=== PATIENT | male | born 1970 | race American Indian/Alaskan Native ===

== ENCOUNTER 2018-10-20 02:10 | Inpatient (IN) | payer BC ==
--- NOTE | 2018-10-20 03:16 | XRay Report ---
FINAL REPORT EXAM: XR CHEST 1V AP HISTORY: SOB TECHNIQUE: A portable semi-upright view of the chest was obtained. FINDINGS: The heart size is normal. The lungs appear mildly congested. There are no localized infiltrates or ef fusions. The skeletal structures are well-maintained. IMPRESSION: Mild pulmonary congestion. No localized infiltrates.
[2018-10-20 05:04] LABS: Basophils # (Auto) 0.1 K/mm3 (0.0-0.1); Basophils % (Auto) 0.6 % (0.0-1.8); Eosinophils # (Auto) 0.3 K/mm3 (0.0-0.4); Eosinophils % (Auto) 3.6 % (0.0-4.3); Hematocrit 28.6 % (35.5-45.6); Hemoglobin 9.6 gm/dl (11.8-15.2); Lymphocytes # (Auto) 1.7 K/mm3 (1.2-5.4); Lymphocytes % (Auto) 18.9 % (13.4-35.0); Mean Corpuscular HGB Conc 34 % (32-34); Mean Corpuscular Volume 85 fl (84-94); Monocytes # (Auto) 1.1 K/mm3 (0.0-0.8); Monocytes % (Auto) 12.6 % (0.0-7.3); Platelet Count 284 K/mm3 (140-440); Red Blood Count 3.35 M/mm3 (3.65-5.03); Red Cell Distribution Width 15.3 % (13.2-15.2)
[2018-10-20 05:10] LABS: BUN/Creatinine Ratio 44; Blood Urea Nitrogen 35 mg/dL (9-20); Hemolysis Index 2
[2018-10-20] MEDS ORDERED: MORPHINE IV PRN (05:26)
[2018-10-20] MEDS ORDERED: ZOFRAN IV PRN (05:26)
[2018-10-20] MEDS ORDERED: TYLENOL PO PRN (05:26)
--- NOTE | 2018-10-20 06:12 | Emergency Department Report ---
HPI - General Chief Complaint: Tube Replacement Time Seen by Provider: 10/20/18 02:28 - HPI HPI: 48-year-old -[place] Islander male presents to the emergency department via EMS from [facility] with complaint of his trach coming out. Per the [facility], the trach came out around 1 AM this morning. However family is bedside and says that they have been visiting him every day, like they always do, and they say that they have been mentioning to the staff at the longterm that his trach has appeared to be out of place or appears abnormal. They were assured by staff that the trach had been in place until this evening. 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 Apparently the trach is used for suction for his secretions and the daughter says that sometimes he will receive some type of ventilation with it. The patient himself is nonverbal and nonambulatory. ED Past Medical Hx - Past Medical History Previous Medical History?: Yes Hx Hypertension: Yes Hx CVA: Yes - Surgical History Additional Surgical History: tracheostomy placement - Social History Smoking Status: Never Smoker - Medications Home Medications: Home Medications Medication Instructions Recorded Confirmed Last Taken Type Clonidine HCl [Catapres] 0.3 mg PO Q6HR 10/20/18 10/20/18 Unknown History Doxazosin Mesylate [Cardura] 4 mg PO DAILY 10/20/18 10/20/18 Unknown History Famotidine [Acid Controller] 20 mg PO DAILY 10/20/18 10/20/18 Unknown History Sennosides [Senna] 17.4 mg PO DAILY 10/20/18 10/20/18 Unknown History hydrALAZINE [Apresoline TAB] 100 mg PO DAILY 10/20/18 10/20/18 Unknown History ED Review of Systems ROS: Stated complaint: TUBE REPLACEMENT Other details as noted in HPI Comment: Unobtainable due to pts medical conditions Physical Exam - Physical Exam Vital Signs: Vital Signs 10/20/18 10/20/18 10/20/18 02:15 02:27 02:44 Pulse Rate 87 88 Respiratory 20 20 20 Rate Blood Pressure 134/76 Blood Pressure 136/74 [Left] O2 Sat by Pulse 98 98 98 Oximetry 10/20/18 10/20/18 10/20/18 02:45 03:00 03:30 Pulse Rate 87 87 87 Respiratory 21 20 22 Rate Blood Pressure 142/78 140/84 135/79 Blood Pressure [Left] O2 Sat by Pulse 98 96 97 Oximetry 10/20/18 04:16 Pulse Rate 85 Respiratory 18 Rate Blood Pressure 127/79 Blood Pressure [Left] O2 Sat by Pulse 97 Oximetry Physical Exam: GENERAL: Patient is chronically debilitated. HEENT: Normocephalic. Atraumatic. Patient has moist mucous membranes. EYES: Pupils are equal and reactive to light bilaterally. NECK: Supple. There is a tracheostomy stoma in the middle of the anterior neck but the stoma appears almost completely closed. There is no surrounding erythema or any bleeding, weeping, discharge or drainage. CHEST/LUNGS: Clear to auscultation. There is no respiratory distress noted. HEART/CARDIOVASCULAR: Regular. There is no tachycardia. There is no obvious murmur. ABDOMEN: Abdomen is soft, nontender. Patient has normal bowel sounds. There is no abdominal distention. SKIN: Skin is warm and dry. Patient has some posterior pressure ulcers. NEURO: Patient is nonverbal and unresponsive but does have spontaneous eye opening and some spontaneous movements. MUSCULOSKELETAL: There are some contractures and atrophy of the extremities. ED Course Vital Signs 10/20/18 10/20/18 10/20/18 02:15 02:27 02:44 Pulse Rate 87 88 Respiratory 20 20 20 Rate Blood Pressure 134/76 Blood Pressure 136/74 [Left] O2 Sat by Pulse 98 98 98 Oximetry 10/20/18 10/20/18 10/20/18 02:45 03:00 03:30 Pulse Rate 87 87 87 Respiratory 21 20 22 Rate Blood Pressure 142/78 140/84 135/79 Blood Pressure [Left] O2 Sat by Pulse 98 96 97 Oximetry 10/20/18 04:16 Pulse Rate 85 Respiratory 18 Rate Blood Pressure 127/79 Blood Pressure [Left] O2 Sat by Pulse 97 Oximetry - Consultations Consultation #1: 10/20/18 06:10 I spoke with the personal caregiver on-call, Dr. Chiu, listen to the case pre sentation and my concerns regarding the patient's trach coming out and that it appears that the stoma has closed. She says that in this situation that it is usually a process where you watch and wait to see if something happens. However she has graciously agreed to see the patient as a consult. - ABG Interpretation Ph: 7.467 PCO2: 42 PO2: 84 Bicarbonate: 30 Interpretation: normal ED Medical Decision Making - Lab Data Result diagrams: 10/20/18 04:42 10/20/18 04:42 - Medical Decision Making This patient was sent in by his longterm for his trach coming out this evening. However family has suspicion that it may have been longer that the trach was out of place and nonfunctional. I looked at the stoma and it does appear closed or at least narrowed to the point where a different tracheostomy tube will not easily be placed without concern for soft tissue injury or possible bleeding. However the patient is breathing normally with the tracheostomy/stoma being covered. He has a pulse ox of 97-98% on room air. An ABG was done that shows that the patient is perfusing, as well as his ventilation. Chest x-ray did not show any pneumothorax, pneumonia, focal consolidation, or any other acute process. As per the consultation section, I spoke with the personal caregiver on-call, who is graciously agreed to see the patient is a consult as I do not feel comfortable sending the patient immediately back to the longterm without further evaluation. The patient will be admitted as a observational stay, to start, to monitor his respiratory status without the trach. He was accepted for admission by the hospitalist, Dr. Sotelo. Critical Care Time: No Critical care attestation.: If time is entered above; I have spent that time in minutes in the direct care of this critically ill patient, excluding procedure time. ED Disposition Clinical Impression: Tracheostomy malfunction, History of CVA (cerebrovascular accident) Anemia Qualifiers: Anemia type: unspecified type Qualified Code(s): D64.9 - Anemia, unspecified Disposition: OP ADMIT IP TO THIS HOSP Is pt being admited?: Yes Condition: Fair Referrals: CAMPOS MARQUIS MD [Primary Care Provider] - 3-5 Days Time of Disposition: 06:16
--- NOTE | 2018-10-20 07:11 | History and Physical Report ---
CHIEF COMPLAINT: Dislodgement of the tracheostomy tube. HISTORY OF PRESENT ILLNESS: The patient is a 48-year-old male who had tracheostomy placed in 05/2018 at [facility] and has been receiving home health services with the family noticing that the patient's tracheostomy site was not looking right according to the family member and they said that there was fluid discharge from the site, but there was no history of shortness of breath or history of fever or chills, or nausea or vomiting and the family noted that this has been going on for about 6 days and brought the patient for evaluation after the home health nurse saw the patient yesterday 10/19/2018 and the patient was evaluated in the Emergency Room and was told that the tracheostomy tube has dislodged with the stoma closed. PAST MEDICAL HISTORY: Not fully defined. PAST SURGICAL HISTORY: Pertinent for tracheostomy placement. FAMILY HISTORY: Family history is noncontributory. SOCIAL HISTORY: The patient does not smoke, does not drink alcohol, and does not use illicit drug. MEDICATIONS: The patient's home medications are not known. ALLERGIES: THE PATIENT IS ALLERGIC TO LISINOPRIL AND CHRIS INHIBITOR. REVIEW OF SYSTEMS: CONSTITUTIONAL: There is no fever, no chills, no diaphoresis. HEENT: There is no headache or sore throat. CARDIOVASCULAR SYSTEM: There is no chest pain or orthopnea. RESPIRATORY SYSTEM: There is no shortness of breath or cough. GASTROINTESTINAL SYSTEM: There is no nausea, no vomiting. No abdominal pain, diarrhea, or constipation. NEUROLOGICAL SYSTEM: There is no numbness, no dizziness, no altered mental status. MUSCULOSKELETAL SYSTEM: There is no joint pain or swelling. DERMATOLOGICAL SYSTEM: There is no skin rash or itching. GENITOURINARY SYSTEM: There is no dysuria, hematuria, or flank pain. Rest of system review is normal. PHYSICAL EXAMINATION: GENERAL: At the time of exam, the patient was found to be alert, oriented to person, noncommunicative, and not in acute distress. VITAL SIGNS: Show normal temperature, pulse of 85, respirations 18, blood pressure 127/79, O2 sat of 97% on room air. HEENT: Shows pupils to be equal, round, reactive to light and accommodating. Extraocular muscles are intact. NECK: Neck is supple with no JVD or carotid bruit and the tracheostomy site and flange loops closed with the stoma still looking fresh. CARDIOVASCULAR SYSTEM: Shows normal first and second heart sounds with no gallops or murmur. RESPIRATORY SYSTEM: Shows good air entry on both sides of the lung with no abnormal breath sounds. GASTROINTESTINAL SYSTEM: Shows abdomen to be full, soft, nontender with no organomegaly or rigidity. NEUROLOGICAL: Neuro exam shows no focal deficit. MUSCULOSKELETAL SYSTEM: Shows no joint swelling or tenderness. DERMATOLOGICAL SYSTEM: Shows no skin rash. GENITOURINARY SYSTEM: Showing no costovertebral angle tenderness. PERTINENT LABORATORY DATA AND IMAGING STUDIES: The patient has CBC done with normal white count, low hemoglobin of 9.6 and low hematocrit of 28.6 with normal MCV with CBC differential showing elevated monocyte count of 12.6. The patient's ABG shows elevated pH of 7.46 with normal pCO2, normal pO2 of 84, normal O2 sat of 97% on room air. The patient's chemistry shows slightly elevated sodium level of 146 with normal potassium, normal chloride, and the elevated BUN of 35 and normal creatinine with a normal estimated GFR of greater than 60. Imaging studies, the patient had chest x-ray done and chest x-ray shows mild pulmonary congestion with no localizing infiltrate. DIAGNOSES: Dislodged tracheostomy tube. PLAN: 1. The patient will be placed on observation in the medical hu and we will continue pulmonary consult with Dr. garcia already requested by the Emergency Room physician. 2. The patient will be on IV morphine 2 mg every 4 hours as needed for pain and IV Zofran 4 mg every 8 hours as needed for nausea and vomiting. 3. The patient will be on Tylenol 650 mg by mouth every 4 hours for fever and headache and will be on heparin 5000 units subcutaneous q. 12 hours for DVT prophylaxis. 4. The patient's diet will be regular diet. JOB# [id number] OCN/NTS KRISTINED
[2018-10-20] MEDS ORDERED: SODIUM BICARBONATE FEEDTUBE PRN (10:47)
[2018-10-20] MEDS ORDERED: SIMPLE SYRUP FEEDTUBE PRN ×2 (10:47)
[2018-10-20] MEDS ORDERED: PANCREAZE DR 10,500 UNIT FEEDTUBE PRN (10:47)
[2018-10-20] MEDS ORDERED: APRESOLINE ONE (10:57)
[2018-10-20] MEDS ORDERED: PEPCID ONE (10:58)
[2018-10-20] MEDS ORDERED: D5NS 1,000 ML IV SCH (11:00)
[2018-10-20] MEDS: HEPARIN SUB-Q SCH ×2 (11:00→21:11)
[2018-10-20] MEDS ORDERED: SENOKOT ONE (11:06)
[2018-10-20] MEDS ORDERED: CATAPRES ONE (11:07)
[2018-10-20] MEDS: APRESOLINE PO SCH (11:30)
[2018-10-20] MEDS: SENOKOT PO SCH (11:31)
[2018-10-20] MEDS: CATAPRES PO SCH ×3 (11:31→23:13)
[2018-10-20] MEDS: PEPCID PO SCH (11:31)
[2018-10-20] MEDS: CARDURA PO SCH (11:46)
[2018-10-20] MEDS ORDERED: NON-FORMULARY (Clonidine Hcl [Catapres] 0.3 MG) PO SCH (12:00)
--- NOTE | 2018-10-20 23:05 | Consultation ---
History of Present Illness Consult date: 10/20/18 Reason for consult: other (accidental decanulation of trachea) History of present illness: PULMONARY AND CRITICAL CARE CONSULTATION THAN YOU FOR ASKING US TO PARTICIPATE IN THE CARE OF THIS PATIENT 48-year-old -Ugandan male presents to the emergency department via EMS from [facility] with complaint of his trach coming out. Per the [facility], the trach came out around 1 AM this morning. However family is bedside and says that they have been visiting him every day, like they always do, and they say that they have been mentioning to the staff at the [facility] that his trach has appeared to be out of place or appears abnormal. They were assured by staff that the trach had been in place until this evening. 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 Apparently the trach is used for suction for his secretions and the daughter says that sometimes he will receive some type of ventilation with it. The patient himself is nonverbal and nonambulatory Patient awake.No acute respiratory distress. Resting on room air. Past History Past Medical History: hypertension, stroke Medications and Allergies Allergies Allergy/AdvReac Type Severity Reaction Status Date / Time CHRIS Inhibitors AdvReac Unknown Verified 10/20/18 02:26 lisinopril AdvReac Unknown Verified 10/20/18 02:26 Home Medications Medication Instructions Recorded Confirmed Last Taken Type Grvyk-Pwvljzk-Xpymwxqv Tablet 15 ml PO DAILY 10/20/18 10/20/18 Unknown History Norvasc 10 mg PO DAILY 10/20/18 10/20/18 Unknown History RX: Clonidine HCl [Catapres] 0.3 mg PO Q6HR 10/20/18 10/20/18 Unknown History RX: Doxazosin Mesylate [Cardura] 4 mg PO DAILY 10/20/18 10/20/18 Unknown History RX: Famotidine [Acid Controller] 20 mg PO DAILY 10/20/18 10/20/18 Unknown History RX: Scopolamine [Transderm-Scop] 1.5 mg TRANSDERMA Q72HR 10/20/18 10/20/18 Unknown History RX: Sennosides [Senna] 17.4 mg PO DAILY 10/20/18 10/20/18 Unknown History RX: hydrALAZINE [Apresoline TAB] 100 mg PO DAILY 10/20/18 10/20/18 Unknown History RX: Aspirin EC [Aspirin Enteric 81 mg PO QDAY #30 tablet. 10/21/18 Unknown Rx Coated TAB] Active Meds: Active Medications Acetaminophen (Tylenol) 650 mg PO Q4H PRN PRN Reason: Fever >101 Lipase/Protease/Amylase (Pancreaze 10,500 Unit) 1 each FEEDTUBE PRN PRN PRN Reason: For Clogged Feeding Tube Clonidine HCl (Catapres) 0.3 mg PO Q6H [facility] Last Admin: 10/20/18 18:22 Dose: 0.3 mg Documented by: Doxazosin Mesylate (Cardura) 4 mg PO DAILY [facility] Last Admin: 10/20/18 11:46 Dose: 4 mg Documented by: Famotidine (Pepcid) 20 mg PO DAILY [facility] Last Admin: 10/20/18 11:31 Dose: 20 mg Documented by: Heparin Sodium (Porcine) (Heparin) 5,000 unit SUB-Q Q12HR [facility] Last Admin: 10/20/18 21:11 Dose: Not Given Documented by: Hydralazine HCl (Apresoline) 100 mg PO DAILY [facility] Last Admin: 10/20/18 11:30 Dose: 100 mg Documented by: Dextrose/Sodium Chloride (D5ns) 1,000 mls @ 42 mls/hr IV DIRECT [facility] Morphine Sulfate (Morphine) 2 mg IV Q4H PRN PRN Reason: Pain, Moderate (4-6) Ondansetron HCl (Zofran) 4 mg IV Q8H PRN PRN Reason: Nausea And Vomiting Senna (Senokot) 17.4 mg PO DAILY [facility] Last Admin: 10/20/18 11:31 Dose: 17.4 mg Documented by: Simple Syrup (Simple Syrup) 15 ml FEEDTUBE PRN PRN PRN Reason: Hypoglycemia Simple Syrup (Simple Syrup) 30 ml FEEDTUBE PRN PRN PRN Reason: Hypoglycemia Sodium Bicarbonate (Sodium Bicarbonate) 325 mg FEEDTUBE PRN PRN PRN Reason: For Clogged Feeding Tube Review of Systems All systems: negative Physical Examination Vital signs: Vital Signs Pulse Resp BP Pulse Ox 87 20 136/74 98 10/20/18 02:15 10/20/18 02:15 10/20/18 02:15 10/20/18 02:15 General appearance: no acute distress, alert Eyes: non-icteric ENT: oropharynx moist Neck: supple, no JVD Ascultation: Bilateral: rhonchi (few rhonchi) Cardiovascular: regular rate and rhythm Gastrointestinal: normoactive bowel sounds, soft Integumentary: normal Extremities: no cyanosis, no edema Musculoskeletal: no deformities Gait: other (Patient is in the bed.) other (CVA) other (Patient non verbal,non communicative.) Results - Laboratory Findings CBC and BMP: 10/20/18 04:42 10/20/18 04:42 ABG POC ABG pH 7.467 (7.35-7.45) H 10/20/18 02:39 POC ABG pCO2 42.6 (35-45) 10/20/18 02:39 POC ABG pO2 84 (80-105) 10/20/18 02:39 POC ABG HCO3 30.8 10/20/18 02:39 POC ABG Total CO2 32 10/20/18 02:39 POC ABG O2 Sat 97 10/20/18 02:39 Abnormal lab findings: Abnormal Labs 10/20/18 10/20/18 10/20/18 02:39 04:42 04:42 RBC 3.35 L Hgb 9.6 L Hct 28.6 L RDW 15.3 H G[place] % (Auto) 12.6 H [place] # 1.1 H POC ABG pH 7.467 H Sodium 146 H BUN 35 H Glucose 101 H - Diagnostic Findings Chest x-ray: report reviewed (Mild pulmonary congestion. No pulmonary infiltrates.), image reviewed Assessment and Plan 48-year-old -Ugandan male presents to the emergency department via EMS from [facility] with complaint of his trach coming out. Per the [facility], the trach came out around 1 AM this morning. However family is bedside and says that they have been visiting him every day, like they always do, and they say that they have been mentioning to the staff at the [facility] that his trach has appeared to be out of place or appears abnormal. They were assured by staff that the trach had been in place until this evening. 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 Apparently the trach is used for suction for his secretions and the daughter says that sometimes he will receive some type of ventilation with it. The patient himself is nonverbal and nonambulatory Patient awake.No acute respiratory distress. Resting on room air. - Patient Problems (1) H/O tracheostomy Status: Acute Plan to address problem: Patient accidentally decanulated. Patient tolerating decanulation good so far. Respiratory suctioning as needed. Aspiration precautions. (2) History of CVA (cerebrovascular accident) Status: Acute Plan to address problem: Management as per primary care. (3) Hypertension Status: Acute Plan to address problem: Management as per primary care
[2018-10-21] MEDS: CATAPRES PO SCH ×3 (04:25→16:22)
[2018-10-21] MEDS: SENOKOT PO SCH (11:27)
[2018-10-21] MEDS: PEPCID PO SCH (11:28)
[2018-10-21] MEDS: CARDURA PO SCH (11:29)
[2018-10-21] MEDS: APRESOLINE PO SCH (11:29)
[2018-10-21] MEDS: HEPARIN SUB-Q SCH (11:31)
--- NOTE | 2018-10-21 13:53 | Event Note ---
Date: 10/20/18 48-year-old -Russian male presents to the emergency department via EMS from [facility] with complaint of his trach coming out. he is off trach now, breathing normally, no distress. will follow pulmonary recommendation, supportive care for now.
--- NOTE | 2018-10-21 14:12 | Progress Note ---
Subjective Date of service: 10/21/18 Objective - Constitutional Vitals: Vital Signs - 12hr 10/21/18 10/21/18 10/21/18 04:16 04:20 04:25 Temperature 98.7 F Pulse Rate 101 H 101 H 101 H Respiratory 20 Rate Blood Pressure 165/92 158/93 158/93 O2 Sat by Pulse 95 98 Oximetry 10/21/18 10/21/18 11:29 12:14 Temperature Pulse Rate 102 H 102 H Respiratory Rate Blood Pressure 181/110 181/110 O2 Sat by Pulse Oximetry - Labs CBC & Chem 7: 10/20/18 04:42 10/20/18 04:42
--- NOTE | 2018-10-21 14:31 | Discharge Summary ---
Providers - Providers Date of Admission: 10/20/18 05:21 Date of discharge: 10/21/18 Attending physician: NEREYDA PARRISH 10/20/18 04:53 Consult to Physician [CONS] Routine Comment: Dr. Miller spoke with Dr. Chiu @ 0424 Consulting Provider: ANABELA CHIU Physician Instructions: Reason For Exam: Evaluation after trachestomy pulled out 10/20/18 07:00 Consult to Wound/ET Nurse [CONS] Routine Reason For Exam: Wound eval for wound [facility] from [facility] 10/20/18 10:28 Consult to Dietitian/Nutrition [CONS] Routine Physician Instructions: Reason For Exam: Reason for Consult: Write/Manage Tube Feeding Primary care physician: CAMPOS MARQUIS Hospitalization Condition: Fair Pertinent studies: CXR: no localized infiltrates Hospital course: 48-year-old -Montenegrin male presents to the emergency department via EMS from [facility] with complaint of his trach coming out. Per the [facility], the trach came out around 1 AM IN THE morning. The patient has a history of a CVA from May that led to some type of respiratory failure, prolonged endotracheal tube and then REQUIRED tracheostomy. Apparently the trach was used for suction for his secretions and the daughter said that sometimes he will receive some type of ventilation with it. The patient himself is nonverbal and nonambulatory. Patient accidentally decanulated after accidentally removing trach tube. Patient is tolerating decanulation good so far. Pulmonary evaluated the patient and did not recommended to replace the trach tube as patient was able to breath and maintain airway w/o it. Patient was then discharge back to SNF in stable condition. He will continue to have TF wit h PEG. 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 HTN/HLD s/p PEG Disposition: DC/TX-03 SNF [facility] Time spent for discharge: 34 minutes Core Measure Documentation - Palliative Care Palliative Care/ Comfort Measures: Not Applicable - Core Measures Any of the following diagnoses?: history only Exam - Physical Exam Narrative exam: General appearance: no acute distress, alert Eyes: non-icteric ENT: oropharynx moist Neck: supple, no JVD Ascultation: Bilateral: rhonchi (few rhonchi) Cardiovascular: regular rate and rhythm Gastrointestinal: normoactive bowel sounds, soft Integumentary: normal Extremities: no cyanosis, no edema Musculoskeletal: no deformities Gait: other (Patient is in the bed) other (CVA) other (Patient non verbal,non communicative.) - Constitutional Vitals: Temp Pulse Resp BP Pulse Ox 98.4 F 102 H 20 171/96 98 10/21/18 14:15 10/21/18 12:14 10/21/18 14:15 10/21/18 14:15 10/21/18 04:20 Plan Activity: up only with assistance, other (aspiration precaution ) Diet: other (tube feeding) Wound: per wound nurse instructions Follow up with: CAMPOS MARQUIS MD [Primary Care Provider] - 3-5 Days Prescriptions: Aspirin EC [Aspirin Enteric Coated TAB] 81 mg PO QDAY #30 tablet.
[2018-10-21 15:21] VITALS: BP 163/76
== END 2018-10-21 18:21 | DRG 206 ==
LOC: ED 02:10 → 3A 05:21
PROVIDERS: ADMIT Internal Medicine; ATTEND Internal Medicine
PROC: 4A033R1 Measurement of Arterial Saturation, Peripheral, Percutaneous Approach (ICD-10-PCS; principal; 2018-10-20)
DX: J95.03 Malfunction of tracheostomy stoma (principal); G93.40 Encephalopathy, unspecified; I69.351 Hemiplegia and hemiparesis following cerebral infarction affecting right dominant side; R47.01 Aphasia; E78.5 Hyperlipidemia, unspecified; D64.9 Anemia, unspecified; Y83.8 Other surgical procedures as the cause of abnormal reaction of the patient, or of later complication, without mention of misadventure at the time of the procedure; I10 Essential (primary) hypertension; Z88.6 Allergy status to analgesic agent; Z88.8 Allergy status to other drugs, medicaments and biological substances; Z79.899 Other long term (current) drug therapy; Z93.1 Gastrostomy status; Y92.128 Other place in nursing home as the place of occurrence of the external cause
CPT/HCPCS: 36415; 71045; 80048; 82803; 85025; G0378; J1644

== ENCOUNTER 2020-07-26 03:04 | Inpatient (IN) | payer MEDICAID ==
--- NOTE | 2020-07-26 04:06 | XRay Report ---
CHEST 1 VIEW INDICATION / CLINICAL INFORMATION: Dyspnea. COMPARISON: 01/18/2019 FINDINGS: SUPPORT DEVICES: None. HEART / MEDIASTINUM: No significant abnormality. LUNGS / PLEURA: Suboptimal inspiration but no acute pulmonary or pleural disease. No pneumothorax. ADDITIONAL FINDINGS: No significant additional findings. IMPRESSION: 1. No acute findings. No interval change. Signer Name: Jenise Arias MD Signed: 07/26/2020 4:02 AM Workstation Name: [id number]
--- NOTE | 2020-07-26 05:13 | Emergency Department Report ---
ED Shortness of Breath HPI - General Chief Complaint: Dyspnea/Respdistress Stated Complaint: RESP DISTRESS Time Seen by Provider: 07/26/20 03:21 Source: EMS, old records reviewed Mode of arrival: Stretcher Limitations: Altered Mental Status - History of Present Illness Initial Comments: Chief complaint: Gurgling respirations and elevated blood pressure HPI: This is a 50-year-old male with history of CVA, seizure disorder, hypertension who presents from shelter facility with elevated blood pressure, chest congestion. At shelter facility staff member gave report for oxygen saturation 97% on room air with hypoxia. EMS detected 99% room air saturation. Patient is nonverbal. He is n.p.o. status. He receives medication and nutrition through feeding tube. History obtained from electronic medical record and documentation from shelter [facility]. MD Complaint: shortness of breath -: Gradual, days(s) (1) Severity: moderate Consistency: constant Improves With: nothing Worsens With: nothing Known History Of: other (History of pneumonia) Associated Symptoms: other (Nonverbal patient, history limited) Treatments Prior to Arrival: oxygen (EMS transport) - Related Data Home Medications Medication Instructions Recorded Confirmed Last Taken Doxazosin Mesylate [Cardura] 4 mg PO DAILY 10/20/18 07/26/20 Unknown Famotidine [Acid Controller] 20 mg PO DAILY 10/20/18 07/26/20 Unknown Acetaminophen [Acetaminophen TAB] 650 mg FEEDTUBE Q6HR PRN 07/26/20 07/26/20 U nknown Budesonide [Pulmicort] 0.25 mg IH Q12HR 07/26/20 07/26/20 Unknown Hyoscyamine Sulfate [Hyoscyamine 0.125 mg PO Q6HR PRN 07/26/20 07/26/20 Unknown Rapdis 0.125 mg] Silver Nitrate Applicator 1 each TP ONCE PRN 07/26/20 07/26/20 Unknown cloNIDine [Catapres] 0.2 mg PO BID 07/26/20 07/26/20 Unknown dilTIAZem [CarDIZEM] 120 mg FEEDTUBE TID 07/26/20 07/26/20 Unknown hydrALAZINE [Apresoline TAB] 100 mg FEEDTUBE TID 07/26/20 07/26/20 Unknown levETIRAcetam [Keppra] 7.5 ml PO BID 07/26/20 Unknown traMADoL [Ultram] 50 mg FEEDTUBE Q12HR PRN 07/26/20 07/26/20 Unknown Previous Rx's Medication Instructions Recorded Last Taken Type ALBUTEROL NEB's [Proventil 0.083% 2.5 mg IH Q4HRT PRN #15 nebu 01/23/19 Unknown Rx NEBS] Aspirin [Aspirin BABY CHEW TAB] 81 mg FEEDTUBE QDAY tab.chew 01/23/19 Unknown Rx Ipratropium/Albuterol Sulfate 2.5 mg IH Q12H #15 01/23/19 1 Day Ago Rx [DUONEB *Not for PRN Use*] ~01/18/19 Sennosides Oral Liqd [Senokot] 17.6 mg FEEDTUBE DAILY PRN #15 01/23/19 Unknown Rx oral.liqd Sodium Bicarbonate 325 mg FEEDTUBE PRN PRN tablet 01/23/19 Unknown Rx polyethylene glycoL 3350 [Miralax 17 gm FEEDTUBE QDAY PRN #15 01/23/19 1 Day Ago Rx 3350] ~01/18/19 Allergies Allergy/AdvReac Type Severity Reaction Status Date / Time CHRIS Inhibitors AdvReac Unknown Verified 01/18/19 13:02 lisinopril AdvReac Unknown Verified 01/18/19 13:02 ED Review of Systems ROS: Stated complaint: RESP DISTRESS Other details as noted in HPI Comment: Unobtainable due to pts medical conditions (Nonverbal status) ED Past Medical Hx - Past Medical History Previous Medical History?: Yes Hx Hypertension: Yes Hx CVA: Yes (with left weakness) Hx Diabetes: No Hx Asthma: Yes Hx COPD: No Hx HIV: No - Surgical History Past Surgical History?: Yes Additional Surgical History: tracheostomy placement - Social History Smoking Status: Unknown if ever smoked Substance Use Type: None - Medications Home Medications: Home Medications Medication Instructions Recorded Confirmed Last Taken Type Doxazosin Mesylate [Cardura] 4 mg PO DAILY 10/20/18 07/26/20 Unknown History Famotidine [Acid Controller] 20 mg PO DAILY 10/20/18 07/26/20 Unknown History ALBUTEROL NEB's [Proventil 0.083% 2.5 mg IH Q4HRT PRN #15 nebu 01/23/19 07/26/20 Unknown Rx NEBS] Aspirin [Aspirin BABY CHEW TAB] 81 mg FEEDTUBE QDAY tab.chew 01/23/19 07/26/20 Unknown Rx Ipratropium/Albuterol Sulfate 2.5 mg IH Q12H #15 01/23/19 07/26/20 1 Day Ago Rx [DUONEB *Not for PRN Use*] ~01/18/19 Sennosides Oral Liqd [Senokot] 17.6 mg FEEDTUBE DAILY PRN #15 01/23/19 07/26/20 Unknown Rx oral.liqd Sodium Bicarbonate 325 mg FEEDTUBE PRN PRN tablet 01/23/19 07/26/20 Unknown Rx polyethylene glycoL 3350 [Miralax 17 gm FEEDTUBE QDAY PRN #15 01/23/19 07/26/20 1 Day Ago Rx 3350] ~01/18/19 Acetaminophen [Acetaminophen TAB] 650 mg FEEDTUBE Q6HR PRN 07/26/20 07/26/20 Unknown History Budesonide [Pulmicort] 0.25 mg IH Q12HR 07/26/20 07/26/20 Unknown History Hyoscyamine Sulfate [Hyoscyamine 0.125 mg PO Q6HR PRN 07/26/20 07/26/20 Unknown History Rapdis 0.125 mg] Silver Nitrate Applicator 1 each TP ONCE PRN 07/26/20 07/26/20 Unknown History cloNIDine [Catapres] 0.2 mg PO BID 07/26/20 07/26/20 Unknown History dilTIAZem [CarDIZEM] 120 mg FEEDTUBE TID 07/26/20 07/26/20 Unknown History hydrALAZINE [Apresoline TAB] 100 mg FEEDTUBE TID 07/26/20 07/26/20 Unknown History levETIRAcetam [Keppra] 7.5 ml PO BID 07/26/20 Unknown History traMADoL [Ultram] 50 mg FEEDTUBE Q12HR PRN 07/26/20 07/26/20 Unknown History ED Physical Exam - General Limitations: Altered Mental Status General appearance: alert, in no apparent distress, other (Appears chronically ill) - Head Head exam: Present: atraumatic, normocephalic - ENT ENT exam: Present: mucous membranes moist - Neck Neck exam: Present: normal inspection - Respiratory Respiratory exam: Present: normal lung sounds bilaterally. Absent: respiratory distress, wheezes, rales, rhonchi - Cardiovascular Cardiovascular Exam: Present: regular rate, normal rhythm, normal heart sounds. Absent: systolic murmur, diastolic murmur, rubs, gallop - GI/Abdominal GI/Abdominal exam: Present: soft, normal bowel sounds. Absent: distended, tenderness, guarding, rebound - Rectal Rectal exam: Present: deferred - Extremities Exam Extremities exam: Present: pedal edema - Neurological Exam Neurological exam: Present: altered - Psychiatric Psychiatric exam: Present: flat affect - Skin Skin exam: Present: warm, dry, normal color. Absent: rash ED Course Vital Signs 07/26/20 07/26/20 07/26/20 03:13 03:15 03:23 Temperature 99.4 F Pulse Rate 94 H 91 H Respiratory 17 Rate Blood Pressure 145/78 Blood Pressure 145/78 [Left] O2 Sat by Pulse 99 99 97 Oximetry 07/26/20 07/26/20 07/26/20 03:31 03:34 03:42 Temperature Pulse Rate 90 91 H Respiratory 14 16 Rate Blood Pressure 145/78 Blood Pressure [Left] O2 Sat by Pulse 97 97 Oximetry ED Medical Decision Making - Lab Data Result diagrams: 07/26/20 04:21 - Radiology Data Radiology results: report reviewed CHEST 1 VIEW INDICATION / CLINICAL INFORMATION: Dyspnea. COMPARISON: 01/18/2019 FINDINGS: SUPPORT DEVICES: None. HEART / MEDIASTINUM: No significant abnormality. LUNGS / PLEURA: Suboptimal inspiration but no acute pulmonary or pleural disease. No pneumothorax. ADDITIONAL FINDINGS: No significant additional findings. IMPRESSION: 1. No acute findings. No interval change. - Medical Decision Making Mr. Mcgee 50-year-old male with a host of medical comorbidities including semivegetative state due to CVA. Patient appears to have chest congestion. Slight cough evident on today's exam. No fever. Patient arrived with room air oxygen saturation 97%. Has decreased to 87% hypoxic. Requiring 3 L nasal cannula. Low-grade temperature appetite 99.4. COVID-19 is a consideration. Patient will be admitted for further treatment evaluation. Critical care attestation.: If time is entered above; I have spent that time in minutes in the direct care of this critically ill patient, excluding procedure time. ED Disposition Clinical Impression: Acute respiratory failure, Suspected COVID-19 virus infection Disposition: [id number] OP ADMIT IP TO THIS HOSP Is pt being admited?: Yes Does the pt Need Aspirin: No Condition: Fair
[2020-07-26 05:26] LABS: BUN/Creatinine Ratio 26; Blood Urea Nitrogen 21 mg/dL (9-20); Calcium 9.4 mg/dL (8.4-10.2); Hemolysis Index 1
[2020-07-26] MEDS ORDERED: AZITHROMYCIN 500 MG in SODIUM CHLORIDE 0.9% 250ML 250 ML IV ONE (05:33)
[2020-07-26] MEDS ORDERED: cefTRIAXone/NS 1 GM/50 ML 1 GM/50 ML BAG IV ONE ×2 (05:33→06:42)
--- NOTE | 2020-07-26 05:48 | History and Physical Report ---
History of Present Illness Date of examination: 07/26/20 Date of admission: 07/26/20 05:32 Chief complaint: Hypoxia History of present illness: This is a 50-year-old male with history of CVA, seizure disorder, and hypertension. Unable to obtain information from patient-due to Patient non verbal, opens eyes with no purposeful response. Per ED record-He came from [facility] with elevated blood pressure and chest congestion. At [facility] staff member gave report for oxygen saturation 97% on room air with hypoxia. EMS detected 99% room air saturation. Patient is nonverbal. He is n.p.o. status. He receives medication and nutrition through feeding tube. History obtained from electronic medical record and documentation from [facility]. Hospital Medicine was asked to admit patient due to Hypoxia. Patient has face mask with oxygen at time of assessment-oxygen saturation 90%. ED work up shows Sodium level 142, potassium 3.6, serum glucose 108 and Cr 0.8 Chest [id number] no acute finding Past History Past Medical History: anemia, GERD, hypertension, stroke Past Surgical History: Other Social history: no significant social history Family history: no significant family history Medications and Allergies Allergies Allergy/AdvReac Type Severity Reaction Status Date / Time CHRIS Inhibitors AdvReac Unknown Verified 01/18/19 13:02 lisinopril AdvReac Unknown Verified 01/18/19 13:02 Home Medications Medication Instructions Recorded Confirmed Last Taken Type Doxazosin Mesylate [Cardura] 4 mg PO DAILY 10/20/18 07/26/20 Unknown History Famotidine [Acid Controller] 20 mg PO DAILY 10/20/18 07/26/20 Unknown History ALBUTEROL NEB's [Proventil 0.083% 2.5 mg IH Q4HRT PRN #15 nebu 01/23/19 07/26/20 Unknown Rx NEBS] Aspirin [Aspirin BABY CHEW TAB] 81 mg FEEDTUBE QDAY tab.chew 01/23/19 07/26/20 Unknown Rx Ipratropium/Albuterol Sulfate 2.5 mg IH Q12H #15 01/23/19 07/26/20 1 Day Ago Rx [DUONEB *Not for PRN Use*] ~01/18/19 Sennosides Oral Liqd [Senokot] 17.6 mg FEEDTUBE DAILY PRN #15 01/23/19 07/26/20 Unknown Rx oral.liqd Sodium Bicarbonate 325 mg FEEDTUBE PRN PRN tablet 01/23/19 07/26/20 Unknown Rx polyethylene glycoL 3350 [Miralax 17 gm FEEDTUBE QDAY PRN #15 01/23/19 07/26/20 1 Day Ago Rx 3350] ~01/18/19 Acetaminophen [Acetaminophen TAB] 650 mg FEEDTUBE Q6HR PRN 07/26/20 07/26/20 Unknown History Budesonide [Pulmicort] 0.25 mg IH Q12HR 07/26/20 07/26/20 Unknown History Hyoscyamine Sulfate [Hyoscyamine 0.125 mg PO Q6HR PRN 07/26/20 07/26/20 Unknown History Rapdis 0.125 mg] Silver Nitrate Applicator 1 each TP ONCE PRN 07/26/20 07/26/20 Unknown History cloNIDine [Catapres] 0.2 mg PO BID 07/26/20 07/26/20 Unknown History dilTIAZem [CarDIZEM] 120 mg FEEDTUBE TID 07/26/20 07/26/20 Unknown History hydrALAZINE [Apresoline TAB] 100 mg FEEDTUBE TID 07/26/20 07/26/20 Unknown History levETIRAcetam [Keppra] 7.5 ml PO BID 07/26/20 07/26/20 Unknown History traMADoL [Ultram] 50 mg FEEDTUBE Q12HR PRN 07/26/20 07/26/20 Unknown History Active Meds: Active Medications Azithromycin 500 mg/ Sodium (Chloride) 250 mls @ 250 mls/hr IV ONCE ONE; Protocol Stop: 07/26/20 06:32 Ceftriaxone Sodium (Rocephin/Ns 1 Gm/50 Ml) 1 gm in 50 mls @ 100 mls/hr IV ONCE ONE; Protocol Stop: 07/26/20 06:02 Review of Systems Constitutional: weakness, lethargy Respiratory: shortness of breath (suspected respiratory infection) Rectal: incontinence Psychiatric: disorientation Exam - Constitutional Vitals: Temp Pulse Resp BP Pulse Ox 99.4 F 91 H 16 145/78 97 07/26/20 03:23 07/26/20 03:34 07/26/20 03:42 07/26/20 03:31 07/26/20 03:42 General appearance: Present: mild distress - EENT ENT: other (unable to assess-eyes open and no purposefull response) - Respiratory Respiratory effort: other (shortness of breath with hypoxia) Respiratory: bilateral: diminished - Cardiovascular Heart rate: 91 Heart Sounds: Present: S1 & S2. Absent: rub, click - Extremities Extremities: pulses symmetrical, No edema, abnormal (bilateral arms and legs contracted) Extremity abnormal: deformity Peripheral Pulses: within normal limits - Abdominal General gastrointestinal: Present: other (Tube feeding) Male genitourinary: Present: normal - Integumentary Integumentary: Present: clear, warm, dry - Musculoskeletal Musculoskeletal: generalized weakness (HX CVA) - Psychiatric Psychiatric: other - Allied Health Allied health notes reviewed: nursing Results - Labs CBC & Chem 7: 07/26/20 04:21 07/26/20 04:21 Labs: Abnormal lab results 07/26/20 Range/Units 04:21 Carbon Dioxide 31 H (22-30) mmol/L BUN 21 H (9-20) mg/dL Glucose 101 H (75-100) mg/dL Assessment and Plan - Patient Problems (1) Encephalopathy Current Visit: Yes Status: Acute Plan to address problem: Patient has hx of CVA Aspiration precaution (2) Acute respiratory failure Current Visit: Yes Status: Acute Plan to address problem: ? cause-viral/bacterial infection Oxygen supplement Bronchodilator Empiric antibiotic (3) Suspected COVID-19 virus infection Current Visit: Yes Status: Acute Plan to address problem: Covid test-f/u with result Check inflammatory makers Will consult ID/Entry Level Receptionist if positive for covid (4) At high risk for aspiration Current Visit: No Status: Acute Plan to address problem: HOB > 30 degrees at all time Aspiration precaution (5) Debility Current Visit: No Status: Acute Plan to address problem: Positive q 2hrs Keep skin clean and dry (6) Hypertension Current Visit: No Status: Acute Plan to address problem: Monitor blood pressure Resume home antihypertensive Adjust if needed (7) Anemia Current Visit: No Status: Acute Qualifiers: Anemia type: unspecified type Qualified Code(s): D64.9 - Anemia, unspecified Plan to address problem: Monitor H/H Will transfuse PRBCs if needed (8) History of CVA (cerebrovascular accident) Current Visit: No Status: Acute Plan to address problem: On enteric feeding resume tube feeding Consult nutrition (9) DVT prophylaxis Current Visit: No Status: Acute Plan to address problem: SQ lovenox
[2020-07-26] MEDS ORDERED: ALBUTEROL 2.5 MG/3 ML NEBU IH PRN (05:53)
[2020-07-26 06:43] LABS: Basophils # (Auto) 0.1 K/mm3 (0.0-0.1); Basophils % (Auto) 0.7 % (0.0-1.8); Eosinophils # (Auto) 0.3 K/mm3 (0.0-0.4); Eosinophils % (Auto) 2.6 % (0.0-4.3); Hematocrit 37.8 % (35.5-45.6); Hemoglobin 13.4 gm/dl (11.8-15.2); Lymphocytes # (Auto) 2.5 K/mm3 (1.2-5.4); Lymphocytes % (Auto) 24.4 % (13.4-35.0); Mean Corpuscular HGB Conc 36 % (32-34); Mean Corpuscular Volume 87 fl (84-94); Monocytes # (Auto) 0.9 K/mm3 (0.0-0.8); Monocytes % (Auto) 8.9 % (0.0-7.3); Platelet Count 230 K/mm3 (140-440); Red Blood Count 4.35 M/mm3 (3.65-5.03); Red Cell Distribution Width 13.3 % (13.2-15.2)
[2020-07-26 08:28] LABS: C-Reactive Protein 1.4 mg/dL (0.00-1.30)
[2020-07-26] MEDS ORDERED: SIMPLE SYRUP 15 ML FEEDTUBE PRN ×2 (08:45)
[2020-07-26] MEDS ORDERED: LIPASE 10,500/PROTEASE 25,000/AMYLASE 43,750 (UNITS) DR CAP FEEDTUBE PRN (08:45)
[2020-07-26] MEDS ORDERED: SODIUM BICARBONATE 325 MG TAB FEEDTUBE PRN (08:45)
[2020-07-26] MEDS ORDERED: hydrALAZINE 100 MG TAB ONE ×3 (09:09→22:03)
[2020-07-26] MEDS ORDERED: dilTIAZem 30 MG TAB ONE (09:09)
[2020-07-26] MEDS: hydrALAZINE 100 MG TAB FEEDTUBE SCH ×3 (09:15→22:52)
[2020-07-26] MEDS: dilTIAZem 60 MG TAB FEEDTUBE SCH ×3 (09:15→22:54)
[2020-07-26] MEDS ORDERED: ENOXAPARIN 30 MG/0.3 ML INJ SUB-Q SCH (10:00)
[2020-07-26] MEDS ORDERED: ASPIRIN 81 MG TAB CHEW PO SCH (10:00)
--- NOTE | 2020-07-26 10:04 | Vascular Lab Report ---
DUPLEX DOPPLER LOWER EXTREMITY VEINS, BILATERAL INDICATION / CLINICAL INFORMATION: r/o DVT. TECHNIQUE: Duplex doppler imaging was performed through the veins of both lower extremities using venous levon jason and other maneuvers. COMPARISON: None available. FINDINGS: RIGHT COMMON FEMORAL VEIN: Negative. RIGHT FEMORAL VEIN: Negative. RIGHT POPLITEAL VEIN: Negative. RIGHT CALF VEINS: Negative. LEFT COMMON FEMORAL VEIN: Negative. LEFT FEMORAL VEIN: Negative. LEFT POPLITEAL VEIN: Negative. LEFT CALF VEINS: Negative. ADDITIONAL FINDINGS: None. IMPRESSION: 1. No sonographic evidence for DVT in either lower extremity. Signer Name: Sean Qureshi MD Signed: 07/26/2020 10:00 AM Workstation Name: [id number]
[2020-07-26] MEDS ORDERED: levETIRAcetam 500 MG/5 ML ORAL LIQD ONE (10:28)
[2020-07-26] MEDS ORDERED: ASPIRIN 81 MG TAB CHEW ONE (10:28)
[2020-07-26] MEDS ORDERED: ENOXAPARIN 40 MG/0.4 ML INJ SUB-Q ONE (10:29)
[2020-07-26] MEDS ORDERED: FAMOTIDINE 20 MG TAB ONE ×2 (10:29→22:03)
[2020-07-26] MEDS: FAMOTIDINE 20 MG TAB PO SCH ×2 (10:52→22:56)
[2020-07-26] MEDS: levETIRAcetam 500 MG/5 ML ORAL LIQD PO SCH ×2 (10:52→22:55)
[2020-07-26] MEDS: DOXAZOSIN 4 MG TAB PO SCH (10:52)
[2020-07-26] MEDS: ENOXAPARIN 40 MG/0.4 ML INJ SUB-Q SCH (10:53)
--- NOTE | 2020-07-26 16:41 | Event Note ---
This is a 50-year-old male with asthma, 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 Patient is nonverbal and has a feeding tube. Work-up in the emergency department revealed labs within normal limits and a chest x-ray with no acute findings. He was initiated on azithromycin and Rocephin. During the time of my exam patient is on a nonrebreather with SPO2 in the upper 90s. His D-dimer was slightly elevated therefore bilateral lower extremity Dopplers will obtained which showed no acute DVT. Patient is a COVID-19 PUI and infectious disease was consulted. His COVID-19 PCR is still pending. Home medications were reconciled and nutrition started tube feedings today. His procalcitonin level was less than 0.05 therefore his antibiotics can be stopped but we will wait for infectious disease input. Patient's ferritin is 337.3 and his CRP is 1.4.
[2020-07-26] MEDS ORDERED: BUDESONIDE 0.25 MG/2 ML NEBU IH SCH (22:00)
[2020-07-26] MEDS ORDERED: DEXAMETHASONE 4 MG TAB ONE (22:03)
[2020-07-26] MEDS: DEXAMETHASONE 4 MG TAB PO SCH (22:50)
[2020-07-27] MEDS ORDERED: hydrALAZINE 100 MG TAB ONE (08:44)
[2020-07-27] MEDS ORDERED: BUDESONIDE 0.25 MG/2 ML NEBU IH SCH (09:28)
[2020-07-27] MEDS: hydrALAZINE 100 MG TAB FEEDTUBE SCH ×3 (09:34→22:34)
[2020-07-27] MEDS: dilTIAZem 60 MG TAB FEEDTUBE SCH ×3 (09:42→21:34)
[2020-07-27] MEDS ORDERED: AZITHROMYCIN 500 MG in SODIUM CHLORIDE 0.9% 250ML 250 ML IV SCH (10:00)
[2020-07-27] MEDS: DOXAZOSIN 4 MG TAB PO SCH (11:00)
[2020-07-27] MEDS: FAMOTIDINE 20 MG TAB PO SCH ×2 (11:15→23:35)
[2020-07-27] MEDS: levETIRAcetam 500 MG/5 ML ORAL LIQD PO SCH ×2 (11:15→22:35)
[2020-07-27] MEDS: ENOXAPARIN 40 MG/0.4 ML INJ SUB-Q SCH (11:15)
[2020-07-27] MEDS: DEXAMETHASONE 4 MG TAB PO SCH (11:16)
[2020-07-27] MEDS: ASPIRIN 81 MG TAB CHEW FEEDTUBE SCH (11:17)
--- NOTE | 2020-07-27 12:05 | Consultation ---
History of Present Illness - Reason for Consult Consult date: 07/27/20 Rule out COVID-19 Requesting physician: GEETA STILL - History of Present Illness 50 years old male with history of CVA, seizure disorder, hypertension, from a assisted facility, admitted on 07/26/2020 due to chest congestion and elevated blood pressure. Unfortunately patient is nonverbal, unable to provide history. Patient has a feeding tube. On arrival, temperature 99.4, HR 94, O2 sat 99%. Chest x-ray shows no acute findings. Review of Systems: reviewed ED and H&P notes. Limited due to PPE conservation strategy Past History Past Medical History: anemia, GERD, hypertension, stroke Past Surgical History: Other Social history: no significant social history Family history: no significant family history Medications and Allergies Allergies Allergy/AdvReac Type Severity Reaction Status Date / Time CHRIS Inhibitors AdvReac Unknown Verified 07/26/20 08:33 lisinopril AdvReac Unknown Verified 07/26/20 08:33 Home Medications Medication Instructions Recorded Confirmed Last Taken Type Doxazosin Mesylate [Cardura] 4 mg PO DAILY 10/20/18 07/26/20 Unknown History Famotidine [Acid Controller] 20 mg PO DAILY 10/20/18 07/26/20 Unknown History ALBUTEROL NEB's [Proventil 0.083% 2.5 mg IH Q4HRT PRN #15 nebu 01/23/19 07/26/20 Unknown Rx NEBS] Aspirin [Aspirin BABY CHEW TAB] 81 mg FEEDTUBE QDAY tab.chew 01/23/19 07/26/20 Unknown Rx Ipratropium/Albuterol Sulfate 2.5 mg IH Q12H #15 01/23/19 07/26/20 1 Day Ago Rx [DUONEB *Not for PRN Use*] ~01/18/19 Sennosides Oral Liqd [Senokot] 17.6 mg FEEDTUBE DAILY PRN #15 01/23/19 07/26/20 Unknown Rx oral.liqd Sodium Bicarbonate 325 mg FEEDTUBE PRN PRN tablet 01/23/19 07/26/20 Unknown Rx polyethylene glycoL 3350 [Miralax 17 gm FEEDTUBE QDAY PRN #15 01/23/19 07/26/20 1 Day Ago Rx 3350] ~01/18/19 Acetaminophen [Acetaminophen TAB] 650 mg FEEDTUBE Q6HR PRN 07/26/20 07/26/20 Unknown History Budesonide [Pulmicort] 0.25 mg IH Q12HR 07/26/20 07/26/20 Unknown History Hyoscyamine Sulfate [Hyoscyamine 0.125 mg PO Q6HR PRN 07/26/20 07/26/20 Unknown History Rapdis 0.125 mg] Silver Nitrate Applicator 1 each TP ONCE PRN 07/26/20 07/26/20 Unknown History cloNIDine [Catapres] 0.2 mg PO BID 07/26/20 07/26/20 Unknown History dilTIAZem [CarDIZEM] 120 mg FEEDTUBE TID 07/26/20 07/26/20 Unknown History hydrALAZINE [Apresoline TAB] 100 mg FEEDTUBE TID 07/26/20 07/26/20 Unknown History levETIRAcetam [Keppra] 7.5 ml PO BID 07/26/20 07/26/20 Unknown History traMADoL [Ultram] 50 mg FEEDTUBE Q12HR PRN 07/26/20 07/26/20 Unknown History Active Meds: Active Medications Albuterol (Proventil) 2.5 mg IH Q4HRT PRN PRN Reason: Shortness Of Breath Lipase/Protease/Amylase (Kilo Conner 10,500 Unit) 1 each FEEDTUBE PRN PRN PRN Reason: For Clogged Feeding Tube Aspirin (Baby Aspirin) 81 mg FEEDTUBE QDAY [facility] Last Admin: 07/27/20 11:17 Dose: 81 mg Documented by: Budesonide (Pulmicort) 0.5 mg IH Q12HRT [facility] Dexamethasone (Decadron) 6 mg PO QDAY [facility] Stop: 08/04/20 10:01 Last Admin: 07/27/20 11:16 Dose: 6 mg Documented by: Diltiazem HCl (Cardizem) 120 mg FEEDTUBE TID [facility] Last Admin: 07/27/20 09:42 Dose: 120 mg Documented by: Doxazosin Mesylate (Cardura) 4 mg PO QDAY [facility] Last Admin: 07/26/20 10:52 Dose: 4 mg Documented by: Enoxaparin Sodium (Enoxaparin) 40 mg SUB-Q QDAY@1000 MERON; Protocol Last Admin: 07/27/20 11:15 Dose: 40 mg Documented by: Famotidine (Pepcid) 20 mg PO BID [facility] Last Admin: 07/27/20 11:15 Dose: 20 mg Documented by: Hydralazine HCl (Apresoline) 100 mg FEEDTUBE TID [facility] Last Admin: 07/27/20 09:34 Dose: 100 mg Documented by: Azithromycin 500 mg/ Sodium (Chloride) 250 mls @ 250 mls/hr IV Q24HR [facility]; Protocol Labetalol HCl (Labetalol) 10 mg IV Q8HR PRN PRN Reason: Hypertension Last Admin: 07/26/20 16:10 Dose: 10 mg Documented by: Levetiracetam (Keppra) 750 mg PO BID [facility] Last Admin: 07/27/20 11:15 Dose: 750 mg Documented by: Simple Syrup (Simple Syrup) 15 ml FEEDTUBE PRN PRN PRN Reason: Hypoglycemia Simple Syrup (Simple Syrup) 30 ml FEEDTUBE PRN PRN PRN Reason: Hypoglycemia Sodium Bicarbonate (Sodium Bicarbonate) 325 mg FEEDTUBE PRN PRN PRN Reason: For Clogged Feeding Tube Physical Examination - Physical Exam Narrative exam: Physical Exam: reviewed ED and hospitalist notes, limited due to conservation of PPE and decrease risk of transmission. General appearance: limited due to conservation of PPE Eyes: limited due to conservation of PPE HENT: Atraumatic; limited due to conservation of PPE Lungs: limited due to conservation of PPE CV: limited due to conservation of PPE Abdomen: limited due to conservation of PPE Extremities: limited due to conservation of PPE Skin: limited due to conservation of PPE Psych: limited due to conservation of PPE Neuro: limited due to conservation of PPE - Constitutional Vitals: Vital Signs Temp Pulse Resp BP Pulse Ox 97.6 F 110 H 20 128/71 92 07/27/20 11:15 07/27/20 11:15 07/27/20 11:15 07/27/20 11:15 07/27/20 11:15 Temperature -Last 24 Hours Temperature 97.6 F Temperature 98.0 F Temperature 98.3 F Results - Labs CBC & Chem 7: 07/26/20 04:21 07/26/20 07:10 Labs: Abnormal lab results 07/27/20 Range/Units 10:06 POC Glucose 115 H (70-105) mg/dL Assessment and Plan Cultures: Blood culture 07/26/2020 no growth today SARS CoV2 PCR pending Assessment: 50 years old male with history of CVA, seizure disorder, hypertension, from a assisted facility, admitted on 07/26/2020 due to chest congestion and elevated blood pressure of unknown duration: #SIRS rule out sepsis: Unclear etiology. #R/o COVID infection: Initial chest x-ray unremarkable. Patient currently on 2 L nasal cannula. D-dimer 286, ferritin 337. Venous ultrasound no DVT. #Acute hypoxemic respiratory failure: O2 sats dropped to 87%, currently on 2 L nasal cannula. Recommendations: -Follow SARS-CoV-2 PCR -Continue dexamethasone 6 mg IV/PO daily for 10 days -Repeat chest x-ray tomorrow -If SARS-CoV-2 PCR is positive and patient remains hypoxic, please start remdesivir total 5 days -Monitor inflammatory markers - ferritin, Ddimer, CRP, LDH -Stop ceftriaxone and azithromycin, procalcitonin <0.25 ng/mL -Continue anticoagulation per System Protocol All laboratory, cultures and imaging were reviewed. Will follow Ya Boyd MD Infectious Diseases Material Control Clerk [facility] M [phone] O [phone]
[2020-07-27] MEDS: BUDESONIDE 0.5 MG/2 ML NEBU IH SCH ×2 (14:09→23:13)
--- NOTE | 2020-07-27 14:24 | Progress Note ---
Assessment and Plan - Patient Problems (1) SIRS (systemic inflammatory response syndrome) Current Visit: Yes Status: Acute Plan to address problem: Rule out sepsis Unclear etiology Presented with tachycardia and hypotension 07/26 was initiated on azithromycin and Rocephin which was discontinued on 07/27 given normal CRP 07/26 blood cultures x2 with no growth to date 07/26 COVID-19 PCR pending Infectious disease consulted, appreciate input (2) Suspected COVID-19 virus infection Current Visit: Yes Status: Acute Plan to address problem: 07/26 COVID-19 PCR pending Droplet/isolation precautions Dexamethasone 6 mg daily started on 07/26 through 08/05 Consider remdesivir per ID if COVID-19 PCR positive OOB 3 times daily Trend from inflammatory markers Pulmonary hygiene Supplemental oxygenation as needed Prone to sleep Infectious disease consulted (3) Acute respiratory failure Current Visit: Yes Status: Acute Plan to address problem: Patient was on a nonrebreather in the ED and has been weaned down to a nasal cannula Pulmonary hygiene Supplemental oxygen as needed Wean as tolerated (4) Hypertension Current Visit: No Status: Acute Plan to address problem: Restarted home antihypertensive regimen Blood pressure monitor per protocol As needed labetalol (5) Seizure disorder Current Visit: No Status: Acute Plan to address problem: Restarted home antiseizure medication Seizure precautions (6) DVT prophylaxis Current Visit: No Status: Acute Plan to address problem: Lovenox subcu SCDs bilateral extremities while in bed History Interval history: This is a 50-year-old male with asthma, 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 Patient is nonverbal and has a feeding tube. Work-up in the emergency department revealed labs within normal limits and a chest x-ray with no acute findings. He was initiated on azithromycin and Rocephin which was stopped by ID today. COVID PCR is still pending and will initiate on remdesivir if (+). Patient has been weaned to NC. 07/26: During the time of my exam patient is on a nonrebreather with SPO2 in the upper 90s. His D-dimer was slightly elevated therefore bilateral lower extremity Dopplers will obtained which showed no acute DVT. Patient is a COVID- 19 PUI and infectious disease was consulted. His procalcitonin level was less t abdi 0.05 therefore his antibiotics can be stopped but we will wait for infectious disease input. Patient's ferritin is 337.3 and his CRP is 1.4. Hospitalist Physical - Physical exam Narrative exam: Not conducted in effort to conserve PPE and limit exposure - Constitutional Vitals: Temp Pulse Resp BP Pulse Ox 97.6 F 88 16 128/71 92 07/27/20 11:15 07/27/20 14:09 07/27/20 14:09 07/27/20 11:15 07/27/20 11:15 General appearance: Present: mild distress Results - Labs CBC & Chem 7: 07/26/20 04:21 07/26/20 07:10 Labs: Laboratory Last Values WBC 10.2 K/mm3 (4.5-11.0) 07/26/20 04:21 RBC 4.35 M/mm3 (3.65-5.03) 07/26/20 04:21 Hgb 13.4 gm/dl (11.8-15.2) 07/26/20 04:21 Hct 37.8 % (35.5-45.6) 07/26/20 04:21 MCV 87 fl (84-94) 07/26/20 04:21 MCH 31 pg (28-32) 07/26/20 04:21 MCHC 36 % (32-34) H 07/26/20 04:21 RDW 13.3 % (13.2-15.2) 07/26/20 04:21 Plt Count 230 K/mm3 (140-440) 07/26/20 04:21 Lymph % (Auto) 24.4 % (13.4-35.0) 07/26/20 04:21 [place] % (Auto) 8.9 % (0.0-7.3) H 07/26/20 04:21 Eos % (Auto) 2.6 % (0.0-4.3) 07/26/20 04:21 Baso % (Auto) 0.7 % (0.0-1.8) 07/26/20 04:21 Lymph # (Auto) 2.5 K/mm3 (1.2-5.4) 07/26/20 04:21 [place] # (Auto) 0.9 K/mm3 (0.0-0.8) H 07/26/20 04:21 Eos # (Auto) 0.3 K/mm3 (0.0-0.4) 07/26/20 04:21 Baso # (Auto) 0.1 K/mm3 (0.0-0.1) 07/26/20 04:21 Seg Neutrophils % 63.4 % (40.0-70.0) 07/26/20 04:21 Seg Neutrophils # 6.4 K/mm3 (1.8-7.7) 07/26/20 04:21 D-Dimer 286.09 ng/mlDDU (0-234) H 07/26/20 07:10 Sodium 142 mmol/L (137-145) 07/26/20 04:21 Potassium 3.6 mmol/L (3.6-5.0) 07/26/20 04:21 Chloride 102.6 mmol/L (98-107) 07/26/20 04:21 Carbon Dioxide 31 mmol/L (22-30) H 07/26/20 04:21 Anion Gap 12 mmol/L 07/26/20 04:21 BUN 21 mg/dL (9-20) H 07/26/20 04:21 Creatinine 0.8 mg/dL (0.8-1.3) 07/26/20 04:21 Estimated GFR > 60 ml/min 07/26/20 04:21 BUN/Creatinine Ratio 26 % 07/26/20 04:21 Glucose 131 mg/dL (75-100) H 07/26/20 07:10 POC Glucose 115 mg/dL (70-105) H 07/27/20 10:06 Calcium 9.4 mg/dL (8.4-10.2) 07/26/20 04:21 Ferritin 337.3 ng/mL (30.0-300.0) H 07/26/20 07:10 Lactate Dehydrogenase 157 units/L (91-180) 07/26/20 07:10 C-Reactive Protein 1.40 mg/dL (0.00-1.30) H 07/26/20 07:10 NT-Pro-B Natriuret Pep 97.40 pg/mL (0-900) 07/26/20 07:10 Procalcitonin < 0.05 ng/mL (<0.15) 11/09/20 07:10 Microbiology: Microbiology 07/26/20 04:05 Peripheral/Venous Blood Culture - Preliminary NO GROWTH AFTER 24 HOURS 07/26/20 04:21 Peripheral/Venous Blood Culture - Preliminary NO GROWTH AFTER 24 HOURS Hebert/IV: Voiding Method Condom Catheter IV Catheter Type [Right Hand] Peripheral IV IV Catheter Type [Right INT / Saline Lock Forearm] Active Medications - Current Medications Current Medications: Generic Name Dose Route Start Last Admin Trade Name Freq PRN Reason Stop Dose Admin Albuterol 2.5 mg 07/26/20 05:53 Proventil IH Q4HRT PRN Shortness Of Breath Lipase/Protease/Amylase 1 each 07/26/20 08:45 Pancreaze 10,500 Unit FEEDTUBE PRN PRN For Clogged Feeding Tube Aspirin 81 mg 07/27/20 10:00 07/27/20 11:17 Baby Aspirin FEEDTUBE 81 mg QDAY MERON Administration Budesonide 0.5 mg 07/27/20 09:30 07/27/20 14:09 Pulmicort IH 0.5 mg Q12HRT MERON Administration Dexamethasone 6 mg 07/26/20 17:00 07/27/20 11:16 Decadron PO 08/04/20 10:01 6 mg QDAY MERON Administration Diltiazem HCl 120 mg 07/26/20 08:15 07/27/20 09:42 Cardizem FEEDTUBE 120 mg TID MERON Administration Doxazosin Mesylate 4 mg 07/26/20 10:00 07/26/20 10:52 Cardura PO 4 mg QDAY MERON Administration Enoxaparin Sodium 40 mg 07/26/20 10:00 07/27/20 11:15 Enoxaparin SUB-Q 40 mg QDAY@1000 MERON Administration Protocol Famotidine 20 mg 07/26/20 10:00 07/27/20 11:15 Pepcid PO 20 mg BID MERON Administration Hydralazine HCl 100 mg 07/26/20 08:15 07/27/20 09:34 Apresoline FEEDTUBE 100 mg TID MERON Administration Azithromycin 500 mg/ Sodium 250 mls @ 250 mls/hr 07/27/20 10:00 Chloride IV Q24HR MERON Protocol Labetalol HCl 10 mg 07/26/20 05:51 07/26/20 16:10 Labetalol IV 10 mg Q8HR PRN Administration Hypertension Levetiracetam 750 mg 07/26/20 10:00 07/27/20 11:15 Keppra PO 750 mg BID MERON Administration Simple Syrup 15 ml 07/26/20 08:45 Simple Syrup FEEDTUBE PRN PRN Hypoglycemia Simple Syrup 30 ml 07/26/20 08:45 Simple Syrup FEEDTUBE PRN PRN Hypoglycemia Sodium Bicarbonate 325 mg 07/26/20 08:45 Sodium Bicarbonate FEEDTUBE PRN PRN For Clogged Feeding Tube Nutrition/Malnutrition Assess - Dietary Evaluation Nutrition/Malnutrition Findings: Nutrition Notes Start: 07/26/20 08:37 Freq: Status: Active Protocol: Document 07/26/20 08:37 LM (Rec: 07/26/20 08:45 LM [id number]) Nutrition Notes Need for Assessment generated from: MD Order Initial or Follow up Assessment Current Diagnosis Hypertension Other Pertinent Diagnosis Suspected COVID-19, ARF, seizures, encephalopathy, debility Current Diet No diet Labs/Tests BUN 21 Pertinent Medications Reviewed Height 5 ft 11 in Weight 90.718 kg [place] Body Weight (kg) 78.18 BMI 27.8 Weight Status Overweight Subjective/Other Information MD consult for TF. Pt is nonverbal and in ED. Burn Absent Trauma Absent Current % PO Negligible Minimum of two criteria No physical signs of malnutrition #1 Nutrition Diagnosis Inadequate oral intake Etiology Suspected COVID-19, ARF As Evidenced by Signs and Symptoms Pt requiring TF Is patient on ventilator? No Is Patient Ambulatory and/or Out of Bed No REE-([facility]-confined to bed) 4905.975 Calculation Used for Recommendations [facility] Additional Notes Protein: 73-91g (0.8-1g/kg) Fluid: 1ml/kcal Nutrition Intervention Change Diet Order: TF Nutrition Support: Jevity 1.2 at 65ml/hr Flush 100ml q4h Kcal 1,872 Protein (gm) 87 Fluid (mL) 1,259 Goal #1 TF start/tolerance Anticipated Discharge Needs: unable to determine at this time Follow-Up By: 07/28/20 Additional Comments F/U for TF start/tolerance
[2020-07-27] MEDS ORDERED: REMDESIVIR 100 MG VIAL IV ONE (18:00)
[2020-07-27] MEDS ORDERED: REMDESIVIR 200 MG in SODIUM CHLORIDE 0.9% 250ML 250 ML IV ONE (18:00)
[2020-07-27] MEDS: SODIUM CHLORIDE 0.9% 50 ML IVPB IV SCH (18:51)
[2020-07-28] MEDS: BUDESONIDE 0.5 MG/2 ML NEBU IH SCH ×2 (07:39→21:17)
--- NOTE | 2020-07-28 08:02 | XRay Report ---
CHEST 1 VIEW INDICATION: f/u resp distress. COMPARISON: 07/26/2020 FINDINGS: Support devices: None. Heart: Within normal limits. Lungs/Pleura: No acute air space or interstitial disease. Minor atelectatic changes have developed al minerva the minor fissure in the right lung. No pleural effusion or pneumothorax. Additional findings: None. IMPRESSION: No acute findings. Signer Name: Charles Rodriguez Jr, MD Signed: 07/28/2020 7:57 AM Workstation Name: [id number]
[2020-07-28] MEDS: hydrALAZINE 100 MG TAB FEEDTUBE SCH ×3 (08:57→23:31)
[2020-07-28] MEDS: dilTIAZem 60 MG TAB FEEDTUBE SCH ×3 (08:57→22:35)
[2020-07-28 09:38] LABS: Hematocrit 40.4 % (35.5-45.6); Hemoglobin 14.2 gm/dl (11.8-15.2); Mean Corpuscular HGB Conc 35 % (32-34); Mean Corpuscular Volume 87 fl (84-94); Platelet Count 261 K/mm3 (140-440); Red Blood Count 4.67 M/mm3 (3.65-5.03); Red Cell Distribution Width 13.5 % (13.2-15.2)
--- NOTE | 2020-07-28 09:54 | Progress Note ---
Assessment and Plan Cultures: Blood culture 07/26/2020 no growth today SARS CoV2 PCR positive Assessment: 50 years old male with history of CVA, seizure disorder, hypertension, from a shelter facility, admitted on 07/26/2020 due to chest congestion and elevated blood pressure of unknown duration: #SIRS rule out sepsis: Unclear etiology. #COVID infection: Initial chest x-ray unremarkable. Patient currently on 2 L nasal cannula. D-dimer 286, ferritin 337. Venous ultrasound no DVT. Repeat chest x-ray without any infiltrates. #Acute hypoxemic respiratory failure: O2 sats dropped to 87%, remains on 2 L nasal cannula. #Leukocytosis: Likely secondary to IV steroids Recommendations: -Continue dexamethasone 6 mg IV/PO daily for 10 days -Continue remdesivir total 5 days -Monitor inflammatory markers - ferritin, Ddimer, CRP, LDH -Continue anticoagulation per System Protocol -Check SARS-CoV-2 IgG All laboratory, cultures and imaging were reviewed. Will follow Ya Boyd MD Infectious Diseases [employer] [facility] ([facility]) M [phone] O [phone] Subjective Date of service: 07/28/20 Principal diagnosis: covid Interval history: Remains tachycardic on monitor, sats dropped to 91%, patient on 2 L nasal cannula Objective - Exam Narrative Exam: Physical Exam: reviewed ED and hospitalist notes, limited due to conservation of PPE and decrease risk of transmission. General appearance: limited due to conservation of PPE Eyes: limited due to conservation of PPE HENT: Atraumatic; limited due to conservation of PPE Lungs: limited due to conservation of PPE CV: limited due to conservation of PPE Abdomen: limited due to conservation of PPE Extremities: limited due to conservation of PPE Skin: limited due to conservation of PPE Psych: limited due to conservation of PPE Neuro: limited due to conservation of PPE - Constitutional Vitals: Vital Signs Temp Pulse Resp BP Pulse Ox 99.7 F H 116 H 16 141/98 97 07/27/20 22:23 07/28/20 08:57 07/28/20 07:40 07/28/20 08:57 07/28/20 01:00 Temperature -Last 24 Hours Temperature 99.7 F Temperature 98.9 F Temperature 97.6 F - Labs CBC & Chem 7: 07/28/20 08:35 07/26/20 07:10 Labs: Abnormal lab results 07/27/20 07/27/20 07/27/20 Range/Units 09:10 10:06 21:44 WBC (4.5-11.0) K/mm3 MCHC (32-34) % POC Glucose 115 H 116 H (70-105) mg/dL Coronavirus (PCR) Positive A (Negative) 07/28/20 07/28/20 Range/Units 06:27 08:35 WBC 15.4 H (4.5-11.0) K/mm3 MCHC 35 H (32-34) % POC Glucose 115 H (70-105) mg/dL Coronavirus (PCR) (Negative)
[2020-07-28 10:04] LABS: BUN/Creatinine Ratio 30; Blood Urea Nitrogen 30 mg/dL (9-20); Calcium 9.8 mg/dL (8.4-10.2); Hemolysis Index 9
[2020-07-28] MEDS ORDERED: POTASSIUM CHLORIDE 20 MEQ PACKET FEEDTUBE NR (12:00)
[2020-07-28] MEDS: DEXAMETHASONE 4 MG TAB PO SCH (13:32)
[2020-07-28] MEDS: ENOXAPARIN 40 MG/0.4 ML INJ SUB-Q SCH (13:33)
[2020-07-28] MEDS: FAMOTIDINE 20 MG TAB PO SCH ×2 (13:34→23:30)
[2020-07-28] MEDS: levETIRAcetam 500 MG/5 ML ORAL LIQD PO SCH ×2 (13:34→23:31)
[2020-07-28] MEDS: ASPIRIN 81 MG TAB CHEW FEEDTUBE SCH (13:35)
[2020-07-28] MEDS: DOXAZOSIN 4 MG TAB PO SCH (13:35)
--- NOTE | 2020-07-28 14:15 | Progress Note ---
Assessment and Plan - Patient Problems (1) SIRS (systemic inflammatory response syndrome) Current Visit: Yes Status: Acute Plan to address problem: Sepsis ruled out Unclear etiology Presented with tachycardia and hypotension 07/26 was initiated on azithromycin and Rocephin which was discontinued on 07/27 given normal CRP 07/26 blood cultures x2 with no growth to date 07/26 COVID-19 PCR positive Infectious disease consulted, appreciate input (2) COVID-19 virus infection Current Visit: Yes Status: Acute Plan to address problem: 07/26 COVID-19 PCR positive Droplet/isolation precautions Dexamethasone 6 mg daily started on 07/26 through 08/05 Remdesivir therapy started 07/27 through 08/01 OOB 3 times daily Trend from inflammatory markers Pulmonary hygiene Supplemental oxygenation as needed Prone to sleep Infectious disease consulted 07/28 COVID-19 antibody test ordered for possible convalescent plasma (3) Acute respiratory failure Current Visit: Yes Status: Acute Plan to address problem: Patient was on a nonrebreather in the ED and has been weaned down to a nasal cannula Pulmonary hygiene Supplemental oxygen as needed Wean as tolerated (4) Hypokalemia Current Visit: Yes Status: Acute Plan to address problem: 07/28 potassium 3.5 Repleted Trend BMP Replete as needed (5) Hypertension Current Visit: No Status: Chronic Plan to address problem: Restarted home antihypertensive regimen Blood pressure monitor per protocol As needed labetalol (6) Seizure disorder Current Visit: No Status: Chronic Plan to address problem: Restarted home antiseizure medication Seizure precautions (7) DVT prophylaxis Current Visit: No Status: Acute Plan to address problem: Lovenox subcu SCDs bilateral extremities while in bed History Interval history: This is a 50-year-old male with asthma, 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 Patient is nonverbal and has a feeding tube. Work-up in the emergency department revealed labs within normal limits and a chest x-ray with no acute findings. Patient's COVID-19 PCR was positive on 07/27 and he was initiated remdesivir. Continue remdesivir and steroid therapy. Infectious disease has requested COVID-19 antibody test and will possibly consider convalescent plasma. No acute event reported overnight. Patient remains on nasal cannula. Today the patient has hypokalemia 3.5 which has been repleted 07/26: During the time of my exam patient is on a nonrebreather with SPO2 in the upper 90s. His D-dimer was slightly elevated therefore bilateral lower extremity Dopplers will obtained which showed no acute DVT. Patient is a COVID- 19 PUI and infectious disease was consulted. His procalcitonin level was less than 0.05 therefore his antibiotics can be stopped but we will wait for infectious disease input. Patient's ferritin is 337.3 and his CRP is 1.4. 07/27: COVID-19 PCR positive and he was initiated on remdesivir with a loading dose and maintenance which will continue for 5 days. Azithromycin and Rocephin stopped due to normal CRP by infectious disease due to normal CRP Hospitalist Physical - Constitutional Vitals: Temp Pulse Resp BP Pulse Ox 99.8 F H 114 H 16 150/84 96 07/28/20 11:38 07/28/20 11:38 07/28/20 11:38 07/28/20 13:30 07/28/20 11:38 General appearance: Present: no acute distress - EENT Eyes: Present: PERRL, EOM intact ENT: poor dentition - Neck Neck: Present: supple, normal ROM - Respiratory Respiratory effort: normal Respiratory: bilateral: diminished - Cardiovascular Rhythm: regular Heart Sounds: Present: S1 & S2 - Extremities Extremities: no ischemia, pulses intact, pulses symmetrical, No edema, normal temperature, normal color Peripheral Pulses: within normal limits - Abdominal General gastrointestinal: soft, non-tender, non-distended, normal bowel sounds - Integumentary Integumentary: Present: warm, dry - Psychiatric Psychiatric: cooperative - Neurologic Neurologic: other (Patient withdraws to pain, he is nonverbal and does not follow any commands) - Allied Health Allied health notes reviewed: nursing, PT Results - Labs CBC & Chem 7: 07/28/20 08:35 07/28/20 08:35 Labs: Laboratory Last Values WBC 15.4 K/mm3 (4.5-11.0) H 07/28/20 08:35 RBC 4.67 M/mm3 (3.65-5.03) 07/28/20 08:35 Hgb 14.2 gm/dl (11.8-15.2) 07/28/20 08:35 Hct 40.4 % (35.5-45.6) 07/28/20 08:35 MCV 87 fl (84-94) 07/28/20 08:35 MCH 31 pg (28-32) 07/28/20 08:35 MCHC 35 % (32-34) H 07/28/20 08:35 RDW 13.5 % (13.2-15.2) 07/28/20 08:35 Plt Count 261 K/mm3 (140-440) 07/28/20 08:35 Lymph % (Auto) 24.4 % (13.4-35.0) 07/26/20 04:21 [place] % (Auto) 8.9 % (0.0-7.3) H 07/26/20 04:21 Eos % (Auto) 2.6 % (0.0-4.3) 07/26/20 04:21 Baso % (Auto) 0.7 % (0.0-1.8) 07/26/20 04:21 Lymph # (Auto) 2.5 K/mm3 (1.2-5.4) 07/26/20 04:21 [place] # (Auto) 0.9 K/mm3 (0.0-0.8) H 07/26/20 04:21 Eos # (Auto) 0.3 K/mm3 (0.0-0.4) 07/26/20 04:21 Baso # (Auto) 0.1 K/mm3 (0.0-0.1) 07/26/20 04:21 Seg Neutrophils % 63.4 % (40.0-70.0) 07/26/20 04:21 Seg Neutrophils # 6.4 K/mm3 (1.8-7.7) 07/26/20 04:21 D-Dimer 366.34 ng/mlDDU (0-234) H 07/28/20 08:35 Sodium 143 mmol/L (137-145) 07/28/20 08:35 Potassium 3.5 mmol/L (3.6-5.0) L 07/28/20 08:35 Chloride 105.4 mmol/L (98-107) 07/28/20 08:35 Carbon Dioxide 27 mmol/L (22-30) 07/28/20 08:35 Anion Gap 14 mmol/L 07/28/20 08:35 BUN 30 mg/dL (9-20) H 07/28/20 08:35 Creatinine 1.0 mg/dL (0.8-1.3) 07/28/20 08:35 Estimated GFR > 60 ml/min 07/28/20 08:35 BUN/Creatinine Ratio 30 % 07/28/20 08:35 Glucose 123 mg/dL (75-100) H 07/28/20 08:35 POC Glucose 115 mg/dL (70-105) H 07/28/20 06:27 Calcium 9.8 mg/dL (8.4-10.2) 07/28/20 08:35 Ferritin 465.9 ng/mL (30.0-300.0) H 07/28/20 08:35 Lactate Dehydrogenase 182 units/L (91-180) H 07/28/20 08:35 C-Reactive Protein 1.60 mg/dL (0.00-1.30) H 07/28/20 08:35 NT-Pro-B Natriuret Pep 97.40 pg/mL (0-900) 07/26/20 07:10 Procalcitonin < 0.05 ng/mL (<0.15) 07/26/20 07:10 Coronavirus (PCR) Positive (Negative) A 07/27/20 09:10 Microbiology: Microbiology 07/26/20 04:05 Peripheral/Venous Blood Culture - Preliminary NO GROWTH AFTER 48 HOURS 07/26/20 04:21 Peripheral/Venous Blood Culture - Preliminary NO GROWTH AFTER 48 HOURS Hebert/IV: Voiding Method Incontinent IV Catheter Type [Right Hand] Peripheral IV IV Catheter Type [Right Peripheral IV Forearm] Active Medications - Current Medications Current Medications: Generic Name Dose Route Start Last Admin Trade Name Freq PRN Reason Stop Dose Admin Albuterol 2.5 mg 07/26/20 05:53 Proventil IH Q4HRT PRN Shortness Of Breath Lipase/Protease/Amylase 1 each 07/26/20 08:45 Pancreluna [place] 10,500 Unit FEEDTUBE PRN PRN For Clogged Feeding Tube Aspirin 81 mg 07/27/20 10:00 07/28/20 13:35 Baby Aspirin FEEDTUBE 81 mg QDAY MERON Administration Budesonide 0.5 mg 07/27/20 09:30 07/28/20 07:39 Pulmicort IH 0.5 mg Q12HRT MERON Administration Dexamethasone 6 mg 07/26/20 17:00 07/28/20 13:32 Decadron PO 08/04/20 10:01 6 mg QDAY MERON Administration Diltiazem HCl 120 mg 07/26/20 08:15 07/28/20 08:57 Cardizem FEEDTUBE 120 mg TID MERON Administration Doxazosin Mesylate 4 mg 07/26/20 10:00 07/28/20 13:35 Cardura PO Not Given QDAY MERON Enoxaparin Sodium 40 mg 07/26/20 10:00 07/28/20 13:33 Enoxaparin SUB-Q 40 mg QDAY@1000 MERON Administration Protocol Famotidine 20 mg 07/26/20 10:00 07/28/20 13:34 Pepcid PO 20 mg BID MERON Administration Hydralazine HCl 100 mg 07/26/20 08:15 07/28/20 08:57 Apresoline FEEDTUBE 100 mg TID MERON Administration REMDESIVIR 100 mg/ Sodium 250 mls @ 500 mls/hr 07/28/20 21:00 Chloride IV 07/31/20 21:29 Q24HR@2100 MERON Labetalol HCl 10 mg 07/26/20 05:51 07/26/20 16:10 Labetalol IV 10 mg Q8HR PRN Administration Hypertension Levetiracetam 750 mg 07/26/20 10:00 07/28/20 13:34 Keppra PO 750 mg BID MERON Administration Potassium Chloride 20 meq 07/28/20 12:00 07/28/20 13:33 Potassium Chloride FEEDTUBE 07/28/20 15:00 20 meq ONCE@1200 NR Administration Simple Syrup 15 ml 07/26/20 08:45 Simple Syrup FEEDTUBE PRN PRN Hypoglycemia Simple Syrup 30 ml 07/26/20 08:45 Simple Syrup FEEDTUBE PRN PRN Hypoglycemia Sodium Bicarbonate 325 mg 07/26/20 08:45 Sodium Bicarbonate FEEDTUBE PRN PRN For Clogged Feeding Tube Sodium Chloride 50 ml 07/27/20 18:30 07/27/20 18:51 Nacl 0.9% IV 07/31/20 21:01 50 ml 2100 MERON Administration Nutrition/Malnutrition Assess - Dietary Evaluation Nutrition/Malnutrition Findings: Nutrition Notes Start: 07/26/20 08:37 Freq: Status: Active Protocol: Document 07/28/20 11:27 ZULEIKA (Rec: 07/28/20 11:32 [email or web address] [id number]) Nutrition Notes Initial or Follow up Reassessment Current Diagnosis Hypertension Other Pertinent Diagnosis COVID-19(+), ARF, seizures, encephalopathy, debility Current Diet Jevity 1.2 at 65 ml/hr (goal rate) Labs/Tests K 3.5 BUN 30 Pertinent Medications Reviewed Height 5 ft 11 in Weight 90.718 kg [place] Body Weight (kg) 78.18 BMI 27.8 Weight Status Overweight Subjective/Other Information FU for TF. Per RN, pt tolerating at goal. Percent of energy/protein needs met: 87%/100% Burn Absent Trauma Absent Current % PO Negligible Minimum of two criteria No physical signs of malnutrition #1 Nutrition Diagnosis Inadequate oral intake Diagnosis Progress(for reassessment Continues documentation) Is patient on ventilator? No Is Patient Ambulatory and/or Out of Bed No REE-([facility]-confined to bed) 6708.976 Calculation Used for Recommendations [facility] Additional Notes Protein: 73-91g (0.8-1g/kg) Fluid: 1ml/kcal Nutrition Intervention Change Diet Order: TF Nutrition Support: Jevity 1.2 at 65ml/hr Flush 100ml q4h Kcal 1,872 Protein (gm) 87 Fluid (mL) 1,259 Goal #1 Meet at least 80% of protien and energy needs via TF Anticipated Discharge Needs: unable to determine at this time Follow-Up By: 07/30/20 Additional Comments FU for TF tolerance
[2020-07-28] MEDS: REMDESIVIR 100 MG in SODIUM CHLORIDE 0.9% 250ML 250 ML IV SCH (22:29)
[2020-07-28] MEDS: SODIUM CHLORIDE 0.9% 50 ML IVPB IV SCH (23:30)
[2020-07-29 06:39] LABS: BUN/Creatinine Ratio 36; Blood Urea Nitrogen 36 mg/dL (9-20); Calcium 9.6 mg/dL (8.4-10.2); Hemolysis Index 8
[2020-07-29] MEDS: BUDESONIDE 0.5 MG/2 ML NEBU IH SCH ×2 (08:22→21:33)
[2020-07-29] MEDS: levETIRAcetam 500 MG/5 ML ORAL LIQD PO SCH ×2 (11:56→21:01)
[2020-07-29] MEDS: FAMOTIDINE 20 MG TAB PO SCH ×2 (11:57→21:01)
[2020-07-29] MEDS: DOXAZOSIN 4 MG TAB PO SCH (11:57)
[2020-07-29] MEDS: ENOXAPARIN 40 MG/0.4 ML INJ SUB-Q SCH (11:57)
[2020-07-29] MEDS: DEXAMETHASONE 4 MG TAB PO SCH (11:58)
[2020-07-29] MEDS: ASPIRIN 81 MG TAB CHEW FEEDTUBE SCH (12:07)
[2020-07-29] MEDS: hydrALAZINE 100 MG TAB FEEDTUBE SCH ×3 (12:07→20:59)
[2020-07-29] MEDS: dilTIAZem 60 MG TAB FEEDTUBE SCH ×3 (12:14→20:57)
--- NOTE | 2020-07-29 15:44 | Progress Note ---
Assessment and Plan - Patient Problems (1) SIRS (systemic inflammatory response syndrome) Current Visit: Yes Status: Acute Plan to address problem: Sepsis ruled out Unclear etiology Presented with tachycardia and hypotension 07/26 was initiated on azithromycin and Rocephin which was discontinued on 07/27 given normal CRP 07/26 blood cultures x2 with no growth to date 07/26 COVID-19 PCR positive Infectious disease consulted, appreciate input (2) COVID-19 virus infection Current Visit: Yes Status: Acute Plan to address problem: 07/26 COVID-19 PCR positive Droplet/isolation precautions Dexamethasone 6 mg daily started on 07/26 through 08/05 Remdesivir therapy started 07/27 through 08/01 OOB 3 times daily Trend from inflammatory markers Pulmonary hygiene Supplemental oxygenation as needed Prone to sleep Infectious disease consulted 07/28 COVID-19 antibody test positive therefore is not a candidate for convalescent plasma (3) Acute respiratory failure Current Visit: Yes Status: Acute Plan to address problem: Patient was on a nonrebreather in the ED and has been weaned down to a nasal cannula Pulmonary hygiene Supplemental oxygen as needed Wean as tolerated (4) Hyperchloremia Current Visit: Yes Status: Acute Plan to address problem: 07/24 chloride 105.4 07/29 chloride 108.2 Trend BMP (5) Hypokalemia Current Visit: Yes Status: Resolved Plan to address problem: 07/28 potassium 3.5 Repleted Trend BMP Replete as needed 07/29 potassium 4.1 (6) Hypertension Current Visit: No Status: Chronic Plan to address problem: Restarted home antihypertensive regimen Blood pressure monitoring per protocol As needed labetalol 07/29 started on metoprolol for persistent hypertension (7) Seizure disorder Current Visit: No Status: Chronic Plan to address problem: Restarted home antiseizure medication Seizure precautions (8) DVT prophylaxis Current Visit: No Status: Acute Plan to address problem: Lovenox subcu SCDs bilateral extremities while in bed History Interval history: This is a 50-year-old male with asthma, 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 Patient is nonverbal and has a feeding tube. Work-up in the emergency department revealed labs within normal limits and a chest x-ray with no acute findings. Patient's COVID-19 PCR was positive on 07/27 and he was initiated remdesivir. Continue remdesivir and steroid therapy. His COVID-19 antibody test was positive therefore is not a candidate for convalescent plasma. No acute events reported overnight. Patient still remains on nasal cannula. 07/26: During the time of my exam patient is on a nonrebreather with SPO2 in the upper 90s. His D-dimer was slightly elevated therefore bilateral lower extremity Dopplers will obtained which showed no acute DVT. Patient is a COVID- 19 PUI and infectious disease was consulted. His procalcitonin level was less than 0.05 therefore his antibiotics can be stopped but we will wait for infectious disease input. Patient's ferritin is 337.3 and his CRP is 1.4. 07/27: COVID-19 PCR positive and he was initiated on remdesivir with a loading dose and maintenance which will continue for 5 days. Azithromycin and Rocephin stopped due to normal CRP by infectious disease due to normal CRP 07/28 no acute events reported overnight. Patient remains on nasal cannula and he was hypokalemic which was repleted Hospitalist Physical - Constitutional Vitals: Temp Pulse Resp BP Pulse Ox 98.9 F 101 H 18 178/92 98 07/29/20 11:34 07/29/20 11:57 07/29/20 11:34 07/29/20 11:57 07/29/20 11:34 General appearance: Present: no acute distress Results - Labs CBC & Chem 7: 07/28/20 08:35 07/29/20 06:11 Labs: Laboratory Last Values WBC 15.4 K/mm3 (4.5-11.0) H 07/28/20 08:35 RBC 4.67 M/mm3 (3.65-5.03) 07/28/20 08:35 Hgb 14.2 gm/dl (11.8-15.2) 07/28/20 08:35 Hct 40.4 % (35.5-45.6) 07/28/20 08:35 MCV 87 fl (84-94) 07/28/20 08:35 MCH 31 pg (28-32) 07/28/20 08:35 MCHC 35 % (32-34) H 07/28/20 08:35 RDW 13.5 % (13.2-15.2) 07/28/20 08:35 Plt Count 261 K/mm3 (140-440) 07/28/20 08:35 Lymph % (Auto) 24.4 % (13.4-35.0) 07/26/20 04:21 [place] % (Auto) 8.9 % (0.0-7.3) H 07/26/20 04:21 Eos % (Auto) 2.6 % (0.0-4.3) 07/26/20 04:21 Baso % (Auto) 0.7 % (0.0-1.8) 07/26/20 04:21 Lymph # (Auto) 2.5 K/mm3 (1.2-5.4) 07/26/20 04:21 [place] # (Auto) 0.9 K/mm3 (0.0-0.8) H 07/26/20 04:21 Eos # (Auto) 0.3 K/mm3 (0.0-0.4) 07/26/20 04:21 Baso # (Auto) 0.1 K/mm3 (0.0-0.1) 07/26/20 04:21 Seg Neutrophils % 63.4 % (40.0-70.0) 07/26/20 04:21 Seg Neutrophils # 6.4 K/mm3 (1.8-7.7) 07/26/20 04:21 D-Dimer 366.34 ng/mlDDU (0-234) H 07/28/20 08:35 Sodium 147 mmol/L (137-145) H 07/29/20 06:11 Potassium 4.1 mmol/L (3.6-5.0) 07/29/20 06:11 Chloride 108.2 mmol/L (98-107) H 07/29/20 06:11 Carbon Dioxide 30 mmol/L (22-30) 07/29/20 06:11 Anion Gap 13 mmol/L 07/29/20 06:11 BUN 36 mg/dL (9-20) H 07/29/20 06:11 Creatinine 1.0 mg/dL (0.8-1.3) 07/29/20 06:11 Estimated GFR > 60 ml/min 07/29/20 06:11 BUN/Creatinine Ratio 36 % 07/29/20 06:11 Glucose 135 mg/dL (75-100) H 07/29/20 06:11 POC Glucose 107 mg/dL (70-105) H 07/29/20 12:34 Calcium 9.6 mg/dL (8.4-10.2) 07/29/20 06:11 Ferritin 465.9 ng/mL (30.0-300.0) H 07/28/20 08:35 Lactate Dehydrogenase 182 units/L (91-180) H 07/28/20 08:35 C-Reactive Protein 1.60 mg/dL (0.00-1.30) H 07/28/20 08:35 NT-Pro-B Natriuret Pep 97.40 pg/mL (0-900) 07/26/20 07:10 Procalcitonin < 0.05 ng/mL (<0.15) 07/26/20 07:10 Coronavirus (PCR) Positive (Negative) A 07/27/20 09:10 SARS-CoV-2 IgG Ab Reactive (NonReactive) A 07/28/20 12:07 Microbiology: Microbiology 07/26/20 04:05 Peripheral/Venous Blood Culture - Preliminary NO GROWTH AFTER 72 HOURS 07/26/20 04:21 Peripheral/Venous Blood Culture - Preliminary NO GROWTH AFTER 72 HOURS Hebert/IV: Voiding Method Condom Catheter IV Catheter Type [Right Hand] Peripheral IV IV Catheter Type [Right Peripheral IV Forearm] Active Medications - Current Medications Current Medications: Generic Name Dose Route Start Last Admin Trade Name Freq PRN Reason Stop Dose Admin Albuterol 2.5 mg 07/26/20 05:53 Proventil IH Q4HRT PRN Shortness Of Breath Lipase/Protease/Amylase 1 each 07/26/20 08:[address] 10,500 Unit FEEDTUBE PRN PRN For Clogged Feeding Tube Aspirin 81 mg 07/27/20 10:00 07/29/20 12:07 Baby Aspirin FEEDTUBE 81 mg QDAY MERON Administration Budesonide 0.5 mg 07/27/20 09:30 07/29/20 08:22 Pulmicort IH 0.5 mg Q12HRT MERON Administration Dexamethasone 6 mg 07/26/20 17:00 07/29/20 11:58 Decadron PO 08/04/20 10:01 6 mg QDAY MERON Administration Diltiazem HCl 120 mg 07/26/20 08:15 07/29/20 12:14 Cardizem FEEDTUBE 120 mg TID MERON Administration Doxazosin Mesylate 4 mg 07/26/20 10:00 07/29/20 11:57 Cardura PO 4 mg QDAY MERON Administration Enoxaparin Sodium 40 mg 07/26/20 10:00 07/29/20 11:57 Enoxaparin SUB-Q 40 mg QDAY@1000 MERON Administration Protocol Famotidine 20 mg 07/26/20 10:00 07/29/20 11:57 Pepcid PO 20 mg BID MERON Administration Hydralazine HCl 100 mg 07/26/20 08:15 07/29/20 12:07 Apresoline FEEDTUBE 100 mg TID MERON Administration REMDESIVIR 100 mg/ Sodium 250 mls @ 500 mls/hr 07/28/20 21:00 07/28/20 22:29 Chloride IV 07/31/20 21:29 500 mls/hr Q24HR@2100 MERON Administration Labetalol HCl 10 mg 07/26/20 05:51 07/26/20 16:10 Labetalol IV 10 mg Q8HR PRN Administration Hypertension Levetiracetam 750 mg 07/26/20 10:00 07/29/20 11:56 Keppra PO 750 mg BID MERON Administration Simple Syrup 15 ml 07/26/20 08:45 Simple Syrup FEEDTUBE PRN PRN Hypoglycemia Simple Syrup 30 ml 07/26/20 08:45 Simple Syrup FEEDTUBE PRN PRN Hypoglycemia Sodium Bicarbonate 325 mg 07/26/20 08:45 Sodium Bicarbonate FEEDTUBE PRN PRN For Clogged Feeding Tube Sodium Chloride 50 ml 07/27/20 18:30 07/28/20 23:30 Nacl 0.9% IV 07/31/20 21:01 50 ml 2100 MERON Administration Nutrition/Malnutrition Assess - Dietary Evaluation Nutrition/Malnutrition Findings: Nutrition Notes Start: 07/26/20 08:37 Freq: Status: Active Protocol: Document 07/28/20 11:27 (Rec: 07/28/20 11:32 [id number]) Nutrition Notes Initial or Follow up Reassessment Current Diagnosis Hypertension Other Pertinent Diagnosis COVID-19(+), ARF, seizures, encephalopathy, debility Current Diet Jevity 1.2 at 65 ml/hr (goal rate) Labs/Tests K 3.5 BUN 30 Pertinent Medications Reviewed Height 5 ft 11 in Weight 90.718 kg [place] Body Weight (kg) 78.18 BMI 27.8 Weight Status Overweight Subjective/Other Information FU for TF. Per RN, pt tolerating at goal. Percent of energy/protein needs met: 87%/100% Burn Absent Trauma Absent Current % PO Negligible Minimum of two criteria No physical signs of malnutrition #1 Nutrition Diagnosis Inadequate oral intake Diagnosis Progress(for reassessment Continues documentation) Is patient on ventilator? No Is Patient Ambulatory and/or Out of Bed No REE-([facility]-confined to bed) 1419.690 Calculation Used for Recommendations [facility] or Additional Notes Protein: 73-91g (0.8-1g/kg) Fluid: 1ml/kcal Nutrition Intervention Change Diet Order: TF Nutrition Support: Jevity 1.2 at 65ml/hr Flush 100ml q4h Kcal 1,872 Protein (gm) 87 Fluid (mL) 1,259 Goal #1 Meet at least 80% of protien and energy needs via TF Anticipated Discharge Needs: unable to determine at this time Follow-Up By: 07/30/20 Additional Comments FU for TF tolerance
--- NOTE | 2020-07-29 16:54 | Progress Note ---
Assessment and Plan Cultures: Blood culture 07/26/2020 no growth today SARS CoV2 PCR positive Assessment: 50 years old male with history of CVA, seizure disorder, hypertension, from a assisted facility, admitted on 07/26/2020 due to chest congestion and elevated blood pressure of unknown duration: #SIRS rule out sepsis: Unclear etiology. #COVID infection: Initial chest x-ray unremarkable. Patient currently on 2 L nasal cannula. D-dimer 286, ferritin 337. Venous ultrasound no DVT. Repeat chest x-ray without any infiltrates. #Acute hypoxemic respiratory failure: Initial O2 sats dropped to 87%, remains on 2 L nasal cannula. #Leukocytosis: Likely secondary to IV steroids Recommendations: -Continue dexamethasone 6 mg IV/PO daily for 10 days -Continue remdesivir total 5 days -Monitor inflammatory markers - ferritin, Ddimer, CRP, LDH -Continue anticoagulation per System Protocol -SARS-CoV-2 IgG positive, patient is not a candidate for Covid convalescent plasma All laboratory, cultures and imaging were reviewed. Will follow Ya Boyd MD Infectious Diseases [employer] [facility] [place] [facility] [phone] O [phone] Subjective Date of service: 07/29/20 Principal diagnosis: covid Interval history: Patient remains on 2 L, tachycardic, no fever Objective - Exam Narrative Exam: Physical Exam: reviewed ED and hospitalist notes, limited due to conservation of PPE and decrease risk of transmission. General appearance: limited due to conservation of PPE Eyes: limited due to conservation of PPE HENT: Atraumatic; limited due to conservation of PPE Lungs: limited due to conservation of PPE CV: limited due to conservation of PPE Abdomen: limited due to conservation of PPE Extremities: limited due to conservation of PPE Skin: limited due to conservation of PPE Psych: limited due to conservation of PPE Neuro: limited due to conservation of PPE - Constitutional Vitals: Vital Signs Temp Pulse Resp BP Pulse Ox 98.9 F 101 H 18 178/92 98 07/29/20 11:34 07/29/20 11:57 07/29/20 11:34 07/29/20 11:57 07/29/20 11:34 Temperature -Last 24 Hours Temperature 98.9 F Temperature 97.9 F Temperature 97.7 F - Labs CBC & Chem 7: 07/28/20 08:35 07/29/20 06:11 Labs: Abnormal lab results 07/28/20 07/29/20 07/29/20 Range/Units 21:21 06:11 07:43 Sodium 147 H (137-145) mmol/L Chloride 108.2 H (98-107) mmol/L BUN 36 H (9-20) mg/dL Glucose 135 H (75-100) mg/dL POC Glucose 126 H 109 H (70-105) mg/dL 07/29/20 Range/Units 12:34 Sodium (137-145) mmol/L Chloride (98-107) mmol/L BUN (9-20) mg/dL Glucose (75-100) mg/dL POC Glucose 107 H (70-105) mg/dL
[2020-07-29] MEDS: SODIUM CHLORIDE 0.9% 50 ML IVPB IV SCH (20:57)
[2020-07-29] MEDS: METOPROLOL TARTRATE 50 MG TAB PO SCH (21:02)
[2020-07-29] MEDS: REMDESIVIR 100 MG in SODIUM CHLORIDE 0.9% 250ML 250 ML IV SCH (22:12)
[2020-07-30 08:56] LABS: Alanine Aminotransferase 44 units/L (7-56); Albumin 3.6 g/dL (3.9-5); Blood Urea Nitrogen 36 mg/dL (9-20); Calcium 9.3 mg/dL (8.4-10.2); Hemolysis Index 9
[2020-07-30 08:58] LABS: BUN/Creatinine Ratio 51; Bilirubin,Direct < 0.2 mg/dL (0-0.2)
[2020-07-30] MEDS: BUDESONIDE 0.5 MG/2 ML NEBU IH SCH ×2 (09:25→20:37)
[2020-07-30] MEDS ORDERED: SENNOSIDES ORAL LIQD 8.8 MG/5 ML ORAL LIQD FEEDTUBE PRN (10:00)
[2020-07-30] MEDS: FAMOTIDINE 20 MG TAB PO SCH ×2 (11:31→23:20)
[2020-07-30] MEDS: DOXAZOSIN 4 MG TAB PO SCH (11:31)
[2020-07-30] MEDS: levETIRAcetam 500 MG/5 ML ORAL LIQD PO SCH ×2 (11:31→23:20)
[2020-07-30] MEDS: ASPIRIN 81 MG TAB CHEW FEEDTUBE SCH (11:31)
[2020-07-30] MEDS: POLYETHYLENE GLYCOL 3350 17 GM POWDER FEEDTUBE SCH (11:31)
[2020-07-30] MEDS: ENOXAPARIN 40 MG/0.4 ML INJ SUB-Q SCH (11:31)
[2020-07-30] MEDS: DEXAMETHASONE 4 MG TAB PO SCH (11:32)
[2020-07-30] MEDS: METOPROLOL TARTRATE 50 MG TAB PO SCH ×2 (11:33→23:20)
[2020-07-30] MEDS: dilTIAZem 60 MG TAB FEEDTUBE SCH ×3 (11:39→20:55)
[2020-07-30] MEDS: hydrALAZINE 100 MG TAB FEEDTUBE SCH ×3 (11:39→20:55)
--- NOTE | 2020-07-30 12:35 | Progress Note ---
Assessment and Plan - Patient Problems (1) SIRS (systemic inflammatory response syndrome) Current Visit: Yes Status: Acute Plan to address problem: Sepsis ruled out Unclear etiology Presented with tachycardia and hypotension 07/26 was initiated on azithromycin and Rocephin which was discontinued on 07/27 given normal CRP 07/26 blood cultures x2 with no growth to date 07/26 COVID-19 PCR positive Infectious disease consulted, appreciate input (2) COVID-19 virus infection Current Visit: Yes Status: Acute Plan to address problem: 07/26 COVID-19 PCR positive Droplet/isolation precautions Dexamethasone 6 mg daily started on 07/26 through 08/05 Remdesivir therapy started 07/27 through 08/01 OOB 3 times daily Trend from inflammatory markers Pulmonary hygiene Supplemental oxygenation as needed Prone to sleep Infectious disease consulted 07/28 COVID-19 antibody test positive therefore is not a candidate for convalescent plasma (3) Acute respiratory failure Current Visit: Yes Status: Acute Plan to address problem: Patient was on a nonrebreather in the ED and has been weaned down to a nasal cannula Pulmonary hygiene Supplemental oxygen as needed Wean as tolerated (4) Hyperchloremia Current Visit: Yes Status: Acute Plan to address problem: 07/24 chloride 105.4 07/29 chloride 108.2, 07/30 111.3 Trend BMP Nutrition as ordered free water flushes depending on sodium level, informed nurse patient should be getting 200 mg every 4 hours of fwf due to hypernatremia per orders. (5) Hypernatremia Current Visit: Yes Status: Acute Plan to address problem: 07/29 sodium 147, 07/30 sodium 147 Patient is ordered 200 mL every 4 hours of FWF while hyponatremic Patient nurse informed of order Trend BMP (6) Hypertension Current Visit: No Status: Chronic Plan to address problem: Restarted home antihypertensive regimen Blood pressure monitoring per protocol As needed labetalol 07/29 started on metoprolol for persistent hypertension (7) Seizure disorder Current Visit: No Status: Chronic Plan to address problem: Restarted home antiseizure medication Seizure precautions (8) DVT prophylaxis Current Visit: No Status: Acute Plan to address problem: Lovenox subcu SCDs bilateral extremities while in bed History Interval history: This is a 50-year-old male with asthma, 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 Patient is nonverbal and has a feeding tube. Work-up in the emergency department revealed labs within normal limits and a chest x-ray with no acute findings. Patient's COVID-19 PCR was positive on 07/27 and he was initiated remdesivir. Continue remdesivir and steroid therapy. No acute events reported overnight. Patient still remains on supplemental oxygenation at this time. Patient remains hypernatremic and hyperchloremic, patient's RN informed of free water flush orders while hypernatremic. 07/26: During the time of my exam patient is on a nonrebreather with SPO2 in the upper 90s. His D-dimer was slightly elevated therefore bilateral lower extremity Dopplers will obtained which showed no acute DVT. Patient is a COVID- 19 PUI and infectious disease was consulted. His procalcitonin level was less than 0.05 therefore his antibiotics can be stopped but we will wait for infectious disease input. Patient's ferritin is 337.3 and his CRP is 1.4. 07/27: COVID-19 PCR positive and he was initiated on remdesivir with a loading dose and maintenance which will continue for 5 days. Azithromycin and Rocephin stopped due to normal CRP by infectious disease due to normal CRP 07/28:no acute events reported overnight. Patient remains on nasal cannula and he was hypokalemic which was repleted 07/29 COVID-19 antibody test positive therefore is not a candidate for conval escent plasma. Patient still remains on nasal cannula Hospitalist Physical - Physical exam Narrative exam: Not conducted in effort to conserve PPE and limit exposure - Constitutional Vitals: Temp Pulse Resp BP Pulse Ox 98.7 F 90 23 134/80 92 07/30/20 05:43 07/30/20 09:25 07/30/20 09:25 07/30/20 05:43 07/30/20 05:43 General appearance: Present: no acute distress Results - Labs CBC & Chem 7: 07/28/20 08:35 07/30/20 08:12 Labs: Laboratory Last Values WBC 15.4 K/mm3 (4.5-11.0) H 07/28/20 08:35 RBC 4.67 M/mm3 (3.65-5.03) 07/28/20 08:35 Hgb 14.2 gm/dl (11.8-15.2) 07/28/20 08:35 Hct 40.4 % (35.5-45.6) 07/28/20 08:35 MCV 87 fl (84-94) 07/28/20 08:35 MCH 31 pg (28-32) 07/28/20 08:35 MCHC 35 % (32-34) H 07/28/20 08:35 RDW 13.5 % (13.2-15.2) 07/28/20 08:35 Plt Count 261 K/mm3 (140-440) 07/28/20 08:35 Lymph % (Auto) 24.4 % (13.4-35.0) 07/26/20 04:21 [place] % (Auto) 8.9 % (0.0-7.3) H 07/26/20 04:21 Eos % (Auto) 2.6 % (0.0-4.3) 07/26/20 04:21 Baso % (Auto) 0.7 % (0.0-1.8) 07/26/20 04:21 Lymph # (Auto) 2.5 K/mm3 (1.2-5.4) 07/26/20 04:21 [place] # (Auto) 0.9 K/mm3 (0.0-0.8) H 07/26/20 04:21 Eos # (Auto) 0.3 K/mm3 (0.0-0.4) 07/26/20 04:21 Baso # (Auto) 0.1 K/mm3 (0.0-0.1) 07/26/20 04:21 Seg Neutrophils % 63.4 % (40.0-70.0) 07/26/20 04:21 Seg Neutrophils # 6.4 K/mm3 (1.8-7.7) 07/26/20 04:21 D-Dimer 249.45 ng/mlDDU (0-234) H 07/30/20 08:12 Sodium 147 mmol/L (137-145) H 07/30/20 08:12 Potassium 4.1 mmol/L (3.6-5.0) 07/30/20 08:12 Chloride 111.7 mmol/L (98-107) H 07/30/20 08:12 Carbon Dioxide 29 mmol/L (22-30) 07/30/20 08:12 Anion Gap 10 mmol/L 07/30/20 08:12 BUN 36 mg/dL (9-20) H 07/30/20 08:12 Creatinine 0.7 mg/dL (0.8-1.3) L 07/30/20 08:12 Estimated GFR > 60 ml/min 07/30/20 08:12 BUN/Creatinine Ratio 51 % 07/30/20 08:12 Glucose 91 mg/dL (75-100) 07/30/20 08:12 POC Glucose 98 mg/dL (70-105) 07/30/20 05:58 Calcium 9.3 mg/dL (8.4-10.2) 07/30/20 08:12 Ferritin 382.1 ng/mL (30.0-300.0) H 07/30/20 08:12 Total Bilirubin 0.40 mg/dL (0.1-1.2) 07/30/20 08:12 Direct Bilirubin < 0.2 mg/dL (0-0.2) 07/30/20 08:12 AST 29 units/L (5-40) 07/30/20 08:12 ALT 44 units/L (7-56) 07/30/20 08:12 Alkaline Phosphatase 74 units/L (35-129) 07/30/20 08:12 Lactate Dehydrogenase 150 units/L (91-180) 07/30/20 08:12 C-Reactive Protein 0.30 mg/dL (0.00-1.30) 07/30/20 08:12 NT-Pro-B Natriuret Pep 97.40 pg/mL (0-900) 07/26/20 07:10 Total Protein 7.3 g/dL (6.3-8.2) 07/30/20 08:12 Albumin 3.6 g/dL (3.9-5) L 07/30/20 08:12 Albumin/Globulin Ratio 1.0 % 07/30/20 08:12 Procalcitonin < 0.05 ng/mL (<0.15) 07/26/20 07:10 Coronavirus (PCR) Positive (Negative) A 07/27/20 09:10 SARS-CoV-2 IgG Ab Reactive (NonReactive) A 07/28/20 12:07 Microbiology: Microbiology 07/26/20 04:05 Peripheral/Venous Blood Culture - Preliminary NO GROWTH AFTER 4 DAYS 07/26/20 04:21 Peripheral/Venous Blood Culture - Preliminary NO GROWTH AFTER 4 DAYS Hebert/IV: Voiding Method Incontinent IV Catheter Type [Right Hand] Peripheral IV IV Catheter Type [Right Peripheral IV Forearm] Active Medications - Current Medications Current Medications: Generic Name Dose Route Start Last Admin Trade Name Freq PRN Reason Stop Dose Admin Albuterol 2.5 mg 07/26/20 05:53 Proventil IH Q4HRT PRN Shortness Of Breath Lipase/Protease/Amylase 1 each 07/26/20 08:[address] 10,500 Unit FEEDTUBE PRN PRN For Clogged Feeding Tube Aspirin 81 mg 07/27/20 10:00 07/30/20 11:31 Baby Aspirin FEEDTUBE 81 mg QDAY MERON Administration Budesonide 0.5 mg 07/27/20 09:30 07/30/20 09:25 Pulmicort IH 0.5 mg Q12HRT MERON Administration Dexamethasone 6 mg 07/26/20 17:00 07/30/20 11:32 Decadron PO 08/04/20 10:01 6 mg QDAY MERON Administration Diltiazem HCl 120 mg 07/26/20 08:15 07/30/20 11:39 Cardizem FEEDTUBE 120 mg TID MERON Administration Doxazosin Mesylate 4 mg 07/26/20 10:00 07/30/20 11:31 Cardura PO 4 mg QDAY MERON Administration Enoxaparin Sodium 40 mg 07/26/20 10:00 07/30/20 11:31 Enoxaparin SUB-Q 40 mg QDAY@1000 MERON Administration Protocol Famotidine 20 mg 07/26/20 10:00 07/30/20 11:31 Pepcid PO 20 mg BID MERON Administration Hydralazine HCl 100 mg 07/26/20 08:15 07/30/20 11:39 Apresoline FEEDTUBE 100 mg TID MERON Administration REMDESIVIR 100 mg/ Sodium 250 mls @ 500 mls/hr 07/28/20 21:00 07/29/20 22:12 Chloride IV 07/31/20 21:29 500 mls/hr Q24HR@2100 MERON Administration Labetalol HCl 10 mg 07/26/20 05:51 07/26/20 16:10 Labetalol IV 10 mg Q8HR PRN Administration Hypertension Levetiracetam 750 mg 07/26/20 10:00 07/30/20 11:31 Keppra PO 750 mg BID MERON Administration Metoprolol Tartrate 50 mg 07/29/20 22:00 07/30/20 11:33 Metoprolol PO 50 mg BID MERON Administration Polyethylene Glycol 17 gm 07/30/20 10:00 07/30/20 11:31 Miralax 3350 FEEDTUBE 17 gm QDAY MERON Administration Senna 17.6 mg 07/30/20 10:00 07/30/20 11:32 Senokot FEEDTUBE 17.6 mg DAILY PRN Administration Constipation Simple Syrup 15 ml 07/26/20 08:45 Simple Syrup FEEDTUBE PRN PRN Hypoglycemia Simple Syrup 30 ml 07/26/20 08:45 Simple Syrup FEEDTUBE PRN PRN Hypoglycemia Sodium Bicarbonate 325 mg 07/26/20 08:45 Sodium Bicarbonate FEEDTUBE PRN PRN For Clogged Feeding Tube Sodium Chloride 50 ml 07/27/20 18:30 07/29/20 20:57 Nacl 0.9% IV 07/31/20 21:01 50 ml 2100 MERON Administration Nutrition/Malnutrition Assess - Dietary Evaluation Nutrition/Malnutrition Findings: Nutrition Notes Start: 07/26/20 08:37 Freq: Status: Active Protocol: Document 07/30/20 11:45 LM (Rec: 07/30/20 11:57 LM [id number]) Nutrition Notes Initial or Follow up Reassessment Current Diagnosis Hypertension Other Pertinent Diagnosis COVID-19(+), ARF, seizures, encephalopathy, debility Current Diet Jevity 1.2 at 65 ml/hr (goal rate) Labs/Tests Na 147 BUN 36 Cr 0.7 Pertinent Medications Decadron Height 5 ft 11 in Weight 90.3 kg Midnight Body Weight (kg) 78.18 BMI 27.7 Weight Status Overweight Subjective/Other Information Pt is tolerating TF at goal. Increased flush for hypernatremia. Percent of energy/protein needs met: 87%/100% Burn Absent Trauma Absent Current % PO Negligible Minimum of two criteria No physical signs of malnutrition #1 Nutrition Diagnosis Inadequate oral intake Diagnosis Progress(for reassessment Continues documentation) Is patient on ventilator? No Is Patient Ambulatory and/or Out of Bed No REE-([facility]-confined to bed) 5716.097 Calculation Used for Recommendations [facility] Additional Notes Protein: 73-91g (0.8-1g/kg) Fluid: 1ml/kcal Nutrition Intervention Change Diet Order: TF Nutrition Support: Jevity 1.2 at 65ml/hr Flush 100ml q4h Kcal 1,872 Protein (gm) 87 Fluid (mL) 1,259 Goal #1 Meet at least 80% of protien and energy needs via TF Anticipated Discharge Needs: unable to determine at this time Follow-Up By: 08/02/20 Additional Comments FU for TF tolerance, Na
--- NOTE | 2020-07-30 16:29 | Progress Note ---
Assessment and Plan Cultures: Blood culture 07/26/2020 no growth today SARS CoV2 PCR positive Assessment: 50 years old male with history of CVA, seizure disorder, hypertension, from a assisted facility, admitted on 07/26/2020 due to chest congestion and elevated blood pressure of unknown duration: #SIRS rule out sepsis: Unclear etiology. #COVID infection: Initial chest x-ray unremarkable. Patient currently on 2 L nasal cannula. D-dimer 286, ferritin 337. Venous ultrasound no DVT. Repeat chest x-ray without any infiltrates. #Acute hypoxemic respiratory failure: Initial O2 sats dropped to 87%, remains on 2 L nasal cannula. #Leukocytosis: Likely secondary to IV steroids Recommendations: -Check exercise oximetry -Continue dexamethasone 6 mg IV/PO daily for 10 days -Continue remdesivir total 5 days -Monitor inflammatory markers - ferritin, Ddimer, CRP, LDH -Continue anticoagulation per System Protocol -SARS-CoV-2 IgG positive, patient is not a candidate for Covid convalescent plasma All laboratory, cultures and imaging were reviewed. Will follow Ya Boyd MD Infectious Diseases [facility] M [phone] O [phone] Subjective Principal diagnosis: covid Objective - Constitutional Vitals: Vital Signs Temp Pulse Resp BP Pulse Ox 97.8 F 89 18 158/87 99 07/30/20 11:46 07/30/20 11:46 07/30/20 11:46 07/30/20 11:46 07/30/20 11:46 Temperature -Last 24 Hours Temperature 97.8 F Temperature 98.7 F Temperature 99.1 F Temperature 98.6 F - Labs CBC & Chem 7: 07/28/20 08:35 07/30/20 08:12 Labs: Abnormal lab results 07/29/20 07/30/20 07/30/20 Range/Units 23:46 08:12 08:12 D-Dimer 249.45 H (0-234) ng/mlDDU Sodium (137-145) mmol/L Chloride (98-107) mmol/L BUN (9-20) mg/dL Creatinine (0.8-1.3) mg/dL POC Glucose 126 H (70-105) mg/dL Ferritin 382.1 H (30.0-300.0) ng/mL Albumin (3.9-5) g/dL 07/30/20 Range/Units 08:12 D-Dimer (0-234) ng/mlDDU Sodium 147 H (137-145) mmol/L Chloride 111.7 H (98-107) mmol/L BUN 36 H (9-20) mg/dL Creatinine 0.7 L (0.8-1.3) mg/dL POC Glucose (70-105) mg/dL Ferritin (30.0-300.0) ng/mL Albumin 3.6 L (3.9-5) g/dL
[2020-07-30] MEDS: SODIUM CHLORIDE 0.9% 50 ML IVPB IV SCH (20:55)
[2020-07-30] MEDS: REMDESIVIR 100 MG in SODIUM CHLORIDE 0.9% 250ML 250 ML IV SCH (22:40)
[2020-07-31 06:57] LABS: Blood Urea Nitrogen 35 mg/dL (9-20); Calcium 9.3 mg/dL (8.4-10.2); Hemolysis Index 24
[2020-07-31 07:01] LABS: BUN/Creatinine Ratio 50
[2020-07-31] MEDS: BUDESONIDE 0.5 MG/2 ML NEBU IH SCH ×2 (08:57→21:29)
[2020-07-31] MEDS: hydrALAZINE 100 MG TAB FEEDTUBE SCH ×3 (12:23→21:57)
[2020-07-31] MEDS: dilTIAZem 60 MG TAB FEEDTUBE SCH ×3 (12:23→21:56)
[2020-07-31] MEDS: POLYETHYLENE GLYCOL 3350 17 GM POWDER FEEDTUBE SCH (12:24)
[2020-07-31] MEDS: levETIRAcetam 500 MG/5 ML ORAL LIQD PO SCH ×2 (12:24→21:56)
[2020-07-31] MEDS: FAMOTIDINE 20 MG TAB PO SCH ×2 (12:24→21:56)
[2020-07-31] MEDS: METOPROLOL TARTRATE 50 MG TAB PO SCH ×2 (12:25→21:56)
[2020-07-31] MEDS: ENOXAPARIN 40 MG/0.4 ML INJ SUB-Q SCH (12:25)
[2020-07-31] MEDS: ASPIRIN 81 MG TAB CHEW FEEDTUBE SCH (12:26)
[2020-07-31] MEDS: DOXAZOSIN 4 MG TAB PO SCH (12:26)
[2020-07-31] MEDS: DEXAMETHASONE 4 MG TAB PO SCH (12:26)
--- NOTE | 2020-07-31 12:32 | Progress Note ---
Assessment and Plan (1) SIRS (systemic inflammatory response syndrome) Current Visit: Yes Status: Acute Plan to address problem: Sepsis ruled out Unclear etiology Presented with tachycardia and hypotension 07/26 was initiated on azithromycin and Rocephin which was discontinued on 07/27 given normal CRP 07/26 blood cultures x2 with no growth to date 07/26 COVID-19 PCR positive Infectious disease consulted, appreciate input (2) COVID-19 virus infection Current Visit: Yes Status: Acute Plan to address problem: 07/26 COVID-19 PCR positive Droplet/isolation precautions Dexamethasone 6 mg daily started on 07/26 through 08/05 Remdesivir therapy started 07/27 through 08/01 OOB 3 times daily Trend from inflammatory markers Pulmonary hygiene Supplemental oxygenation as needed Prone to sleep Infectious disease consulted 07/28 COVID-19 antibody test positive therefore is not a candidate for convalescent plasma (3) Acute respiratory failure Current Visit: Yes Status: Acute Plan to address problem: Patient was on a nonrebreather in the ED and has been weaned down to a nasal cannula Pulmonary hygiene Supplemental oxygen as needed Wean as tolerated (4) Hyperchloremia Current Visit: Yes Status: Acute Plan to address problem: 07/24 chloride 105.4 07/29 chloride 108.2, 07/30 111.3 Trend BMP Nutrition as ordered free water flushes depending on sodium level, informed nurse patient should be getting 200 mg every 4 hours of fwf due to hypernatremia per orders. (5) Hypernatremia Current Visit: Yes Status: Acute Plan to address problem: 07/29 sodium 147, 07/30 sodium 147 Patient is ordered 200 mL every 4 hours of FWF while hyponatremic Patient nurse informed of order Trend BMP (6) Hypertension Current Visit: No Status: Chronic Plan to address problem: Restarted home antihypertensive regimen Blood pressure monitoring per protocol As needed labetalol 07/29 started on metoprolol for persistent hypertension (7) Seizure disorder Current Visit: No Status: Chronic Plan to address problem: Restarted home antiseizure medication Seizure precautions (8) DVT prophylaxis Current Visit: No Status: Acute Plan to address problem: Lovenox subcu SCDs bilateral extremities while in bed Subjective Date of service: 07/31/20 Principal diagnosis: COVID-19 positive test (U07.1, COVID-19) with Acute Pneumonia (J12.89, O Interval history: This is a 50-year-old male with asthma, 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 Patient is nonverbal and has a feeding tube. Work-up in the emergency department revealed labs within normal limits and a chest x-ray with no acute findings. Patient's COVID-19 PCR was positive on 07/27 and he was initiated remdesivir. Continue remdesivir and steroid therapy. No acute events reported overnight. Patient still remains on supplemental oxygenation at this time. Patient remains hypernatremic and hyperchloremic, patient's RN informed of free water flush orders while hypernatremic. 07/26: During the time of my exam patient is on a nonrebreather with SPO2 in the upper 90s. His D-dimer was slightly elevated therefore bilateral lower extremity Dopplers will obtained which showed no acute DVT. Patient is a COVID- 19 PUI and infectious disease was consulted. His procalcitonin level was less than 0.05 therefore his antibiotics can be stopped but we will wait for infectious disease input. Patient's ferritin is 337.3 and his CRP is 1.4. 07/27: COVID-19 PCR positive and he was initiated on remdesivir with a loading dose and maintenance which will continue for 5 days. Azithromycin and Rocephin stopped due to normal CRP by infectious disease due to normal CRP 07/28:no acute events reported overnight. Patient remains on nasal cannula and he was hypokalemic which was repleted 07/29 COVID-19 antibody test positive therefore is not a candidate for convalescent plasma. Patient still remains on nasal cannula 07/30/2020 Patient on nasal cannula oxygen 07/31/2020 Patient doing better. Still on oxygen. Afebrile. Objective - Constitutional Vitals: Vital Signs - 12hr 07/31/20 07/31/20 07/31/20 03:24 08:57 11:46 Temperature 98.5 F 97.7 F Pulse Rate 64 87 Pulse Rate [ 71 Bilateral] Respiratory 20 24 Rate Respiratory 19 Rate [Bilateral ] Blood Pressure 128/74 156/92 O2 Sat by Pulse 100 98 Oximetry 07/31/20 12:25 Temperature Pulse Rate 86 Pulse Rate [ Bilateral] Respiratory Rate Respiratory Rate [Bilateral ] Blood Pressure 159/86 O2 Sat by Pulse Oximetry General appearance: Present: no acute distress, well-nourished - EENT Eyes: PERRL, EOM intact ENT: hearing intact, clear oral mucosa Ears: bilateral: normal - Neck Neck: supple, normal ROM - Respiratory Respiratory effort: normal Respiratory: bilateral: CTA - Breasts Breasts: normal - Cardiovascular Rhythm: regular Heart Sounds: Present: S1 & S2. Absent: gallop, rub Extremities: pulses intact, No edema, normal color, Full ROM - Gastrointestinal General gastrointestinal: Present: soft, non-tender, non-distended, normal bowel sounds, other (PEG in place) - Genitourinary Male genitourinary: normal - Integumentary Integumentary: clear, warm, dry - Musculoskeletal Musculoskeletal: 1, strength equal bilaterally - Neurologic Neurologic: moves all extremities - Psychiatric Psychiatric: memory intact, appropriate mood/affect, intact judgment & insight - Labs CBC & Chem 7: 07/28/20 08:35 07/31/20 06:14 Labs: Abnormal lab results 07/31/20 Range/Units 06:14 Chloride 107.7 H (98-107) mmol/L Carbon Dioxide 31 H (22-30) mmol/L BUN 35 H (9-20) mg/dL Creatinine 0.7 L (0.8-1.3) mg/dL Glucose 106 H (75-100) mg/dL
[2020-07-31] MEDS: REMDESIVIR 100 MG in SODIUM CHLORIDE 0.9% 250ML 250 ML IV SCH (21:56)
[2020-07-31] MEDS: SODIUM CHLORIDE 0.9% 50 ML IVPB IV SCH (21:57)
[2020-08-01] MEDS: BUDESONIDE 0.5 MG/2 ML NEBU IH SCH ×2 (08:46→20:58)
[2020-08-01] MEDS: hydrALAZINE 100 MG TAB FEEDTUBE SCH ×3 (11:46→23:17)
[2020-08-01] MEDS: dilTIAZem 60 MG TAB FEEDTUBE SCH ×3 (11:46→23:18)
[2020-08-01] MEDS: FAMOTIDINE 20 MG TAB PO SCH ×2 (11:47→23:17)
[2020-08-01] MEDS: POLYETHYLENE GLYCOL 3350 17 GM POWDER FEEDTUBE SCH (11:47)
[2020-08-01] MEDS: METOPROLOL TARTRATE 50 MG TAB PO SCH ×2 (11:48→23:18)
[2020-08-01] MEDS: DOXAZOSIN 4 MG TAB PO SCH (11:48)
[2020-08-01] MEDS: levETIRAcetam 500 MG/5 ML ORAL LIQD PO SCH ×2 (11:48→23:17)
[2020-08-01] MEDS: ENOXAPARIN 40 MG/0.4 ML INJ SUB-Q SCH (11:49)
[2020-08-01] MEDS: ASPIRIN 81 MG TAB CHEW FEEDTUBE SCH (11:49)
[2020-08-01] MEDS: DEXAMETHASONE 4 MG TAB PO SCH (11:50)
--- NOTE | 2020-08-01 15:45 | Progress Note ---
Assessment and Plan (1) SIRS (systemic inflammatory response syndrome) Current Visit: Yes Status: Acute Plan to address problem: Sepsis ruled out Unclear etiology Presented with tachycardia and hypotension 07/26 was initiated on azithromycin and Rocephin which was discontinued on 07/27 given normal CRP 07/26 blood cultures x2 with no growth to date 07/26 COVID-19 PCR positive Infectious disease consulted, appreciate input Patient on 3 L nasal cannula oxygen (2) COVID-19 virus infection Current Visit: Yes Status: Acute Plan to address problem: 07/26 COVID-19 PCR positive Droplet/isolation precautions Dexamethasone 6 mg daily started on 07/26 through 08/05 Remdesivir therapy started 07/27 through 08/01 OOB 3 times daily Trend from inflammatory markers Pulmonary hygiene Supplemental oxygenation as needed Prone to sleep Infectious disease consulted 07/28 COVID-19 antibody test positive therefore is not a candidate for convalescent plasma Patient on 3 L nasal cannula (3) Acute respiratory failure Current Visit: Yes Status: Acute Plan to address problem: Patient was on a nonrebreather in the ED and has been weaned down to a nasal cannula Pulmonary hygiene Supplemental oxygen as needed Wean as tolerated (4) Hyperchloremia Current Visit: Yes Status: Acute Plan to address problem: 07/24 chloride 105.4 07/29 chloride 108.2, 07/30 111.3 Trend BMP Nutrition as ordered free water flushes depending on sodium level, informed nurse patient should be getting 200 mg every 4 hours of fwf due to hypernatremia per orders. (5) Hypernatremia Current Visit: Yes Status: Acute Plan to address problem: 07/29 sodium 147, 07/30 sodium 147 Patient is ordered 200 mL every 4 hours of FWF while hyponatremic Patient nurse informed of order Trend BMP (6) Hypertension Current Visit: No Status: Chronic Plan to address problem: Restarted home antihypertensive regimen Blood pressure monitoring per protocol As needed labetalol 07/29 started on metoprolol for persistent hypertension (7) Seizure disorder Current Visit: No Status: Chronic Plan to address problem: Restarted home antiseizure medication Seizure precautions (8) DVT prophylaxis Current Visit: No Status: Acute Plan to address problem: Lovenox subcu SCDs bilateral extremities while in bed Subjective Date of service: 08/01/20 Principal diagnosis: COVID-19 positive test (U07.1, COVID-19) with Acute Pneumonia (J12.89, O Interval history: This is a 50-year-old male with asthma, 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 Patient is nonverbal and has a feeding tube. Work-up in the emergency department revealed labs within normal limits and a chest x-ray with no acute findings. Patient's COVID-19 PCR was positive on 07/27 and he was initiated remdesivir. Continue remdesivir and steroid therapy. No acute events reported overnight. Patient still remains on supplemental oxygenation at this time. Patient remains hypernatremic and hyperchloremic, patient's RN informed of free water flush orders while hypernatremic. 07/26: During the time of my exam patient is on a nonrebreather with SPO2 in the upper 90s. His D-dimer was slightly elevated therefore bilateral lower extremity Dopplers will obtained which showed no acute DVT. Patient is a COVID- 19 PUI and infectious disease was consulted. His procalcitonin level was less than 0.05 therefore his antibiotics can be stopped but we will wait for infectious disease input. Patient's ferritin is 337.3 and his CRP is 1.4. 07/27: COVID-19 PCR positive and he was initiated on remdesivir with a loading dose and maintenance which will continue for 5 days. Azithromycin and Rocephin stopped due to normal CRP by infectious disease due to normal CRP 07/28:no acute events reported overnight. Patient remains on nasal cannula and he was hypokalemic which was repleted 07/29 COVID-19 antibody test positive therefore is not a candidate for convalescent plasma. Patient still remains on nasal cannula 07/30/2020 Patient on nasal cannula oxygen 07/31/2020 Patient doing better. Still on oxygen. Afebrile. 08/01/2020 Patient on 3 L nasal cannula oxygen Objective - Constitutional Vitals: Vital Signs - 12hr 08/01/20 08/01/20 08/01/20 05:12 08:49 11:46 Temperature 98.6 F Pulse Rate 63 Pulse Rate [ 69 Anterior Bilateral] Respiratory 24 Rate Respiratory 18 Rate [Anterior Bilateral] Blood Pressure 159/87 150/80 O2 Sat by Pulse 98 Oximetry General appearance: Present: no acute distress, well-nourished - EENT Eyes: PERRL, EOM intact ENT: hearing intact, clear oral mucosa Ears: bilateral: normal - Neck Neck: supple, normal ROM - Respiratory Respiratory effort: normal Respiratory: bilateral: CTA, rhonchi (Scattered) - Breasts Breasts: normal - Cardiovascular Heart rate: 78 Rhythm: regular Heart Sounds: Present: S1 & S2. Absent: gallop, rub Extremities: no ischemia, pulses intact, No edema, normal color, Full ROM - Gastrointestinal General gastrointestinal: Present: soft, non-tender, non-distended, normal bowel sounds - Genitourinary Male genitourinary: normal - Integumentary Integumentary: clear, warm, dry - Musculoskeletal Musculoskeletal: 1, strength equal bilaterally - Neurologic Neurologic: moves all extremities - Psychiatric Psychiatric: memory intact, appropriate mood/affect, intact judgment & insight - Allied health notes Allied health notes reviewed: nursing, case management - Labs CBC & Chem 7: 07/28/20 08:35 07/31/20 06:14 Labs: Abnormal lab results 07/31/20 Range/Units 23:16 POC Glucose 106 H (70-105) mg/dL
[2020-08-02] MEDS: BUDESONIDE 0.5 MG/2 ML NEBU IH SCH (08:30)
[2020-08-02] MEDS ORDERED: METOPROLOL TARTRATE 50 MG TAB PO SCH (10:00)
[2020-08-02] MEDS: dilTIAZem 60 MG TAB FEEDTUBE SCH ×2 (10:30→14:26)
[2020-08-02] MEDS: FAMOTIDINE 20 MG TAB PO SCH (10:31)
[2020-08-02] MEDS: levETIRAcetam 500 MG/5 ML ORAL LIQD PO SCH (10:31)
[2020-08-02] MEDS: hydrALAZINE 100 MG TAB FEEDTUBE SCH ×2 (10:32→14:26)
[2020-08-02] MEDS: DOXAZOSIN 4 MG TAB PO SCH (10:32)
[2020-08-02] MEDS: ASPIRIN 81 MG TAB CHEW FEEDTUBE SCH (10:32)
[2020-08-02] MEDS: DEXAMETHASONE 4 MG TAB PO SCH (10:33)
[2020-08-02] MEDS: ENOXAPARIN 40 MG/0.4 ML INJ SUB-Q SCH (10:33)
[2020-08-02] MEDS: POLYETHYLENE GLYCOL 3350 17 GM POWDER FEEDTUBE SCH (10:33)
--- NOTE | 2020-08-02 14:18 | Discharge Summary ---
Providers - Providers Date of Admission: 07/26/20 15:47 Date of discharge: 08/02/20 Attending physician: LAUREN COOK 07/26/20 06:56 Consult to Dietitian/Nutrition [CONS] Routine Physician Instructions: Reason For Exam: Reason for Consult: Write/Manage Tube Feeding 07/26/20 16:40 Consult to Physician [CONS] Routine Comment: Consulting Provider: MOISES PITTMAN Physician Instructions: Reason For Exam: COVID PUI Primary care physician: HOUSESMITH Hospitalization Condition: Stable Hospital course: This is a 50-year-old male with asthma, 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 Patient is nonverbal and has a feeding tube. Work-up in the emergency department revealed labs within normal limits and a chest x-ray with no acute findings. Patient's COVID-19 PCR was positive on 07/27 and he was initiated remdesivir. Patient's D-dimer was elevated therefore we ordered a bilateral lower extremity Doppler ultrasound which showed no acute DVT. Infectious disease was consulted. His procalcitonin was less than 0.05 therefore his antibiotics were stopped on 07/27. Patient was hypokalemic on 07/28 which was repleted. On 07/29 his Covid 19 antibody test was positive therefore he is not a candidate for convalescent plasma. Patient is status post remdesivir therapy. Patient remains supplemental oxygen. He will be discharged with 2 days of dexamethasone 6 mg p.o. daily to complete his 10-day therapy. Patient will be transferred to his long term who will assume care. Patient will need to follow-up with his primary care physician within 1 to 2 weeks of discharge. (1) SIRS (systemic inflammatory response syndrome) Current Visit: Yes Status: Acute Plan to address problem: Sepsis ruled out Patient has been infected with COVID-19 Presented with tachycardia and hypotension 07/26 was initiated on azithromycin and Rocephin which was discontinued on 07/27 given normal CRP 07/26 blood cultures x2 with no growth to date 07/26 COVID-19 PCR positive Infectious disease consulted, appreciate input Patient on 3 L nasal cannula oxygen (2) COVID-19 virus infection Current Visit: Yes Status: Acute Plan to address problem: 07/26 COVID-19 PCR positive Continue droplet/isolation precautions Dexamethasone 6 mg daily started on 07/26 through 08/05 Remdesivir therapy started 07/27 through 08/01 OOB 3 times daily Trend from inflammatory markers Pulmonary hygiene Supplemental oxygenation as needed Prone to sleep Infectious disease consulted 07/28 COVID-19 antibody test positive therefore is not a candidate for convalescent plasma (3) Acute respiratory failure Current Visit: Yes Status: Acute Plan to address problem: Patient was on a nonrebreather in the ED and has been weaned down to a nasal cannula Pulmonary hygiene Supplemental oxygen as needed Wean as tolerated (4) Hyperchloremia Current Visit: Yes Status: Acute Plan to address problem: 07/24 chloride 105.4 07/29 chloride 108.2, 07/30 111.3, 07/4107.7 Trend BMP Continue free water flushes depending on sodium (5) Hypernatremia Current Visit: Yes Status: Resolved Plan to address problem: 07/29 sodium 147, 07/30 sodium 147, 07/31 sodium 145 (6) Hypertension Current Visit: No Status: Chronic Plan to address problem: Continue antihypertensive regimen Blood pressure monitoring per primary care physician instructions 07/29 started on metoprolol for persistent hypertension (7) Seizure disorder Current Visit: No Status: Chronic Plan to address problem: Continue home antiseizure medication Seizure precautions Disposition: [id number] SNF [facility] Time spent for discharge: 35 Core Measure Documentation - Palliative Care Palliative Care/ Comfort Measures: Not Applicable - Core Measures Any of the following diagnoses?: history only Exam - Physical Exam Narrative exam: General appearance: Present: no acute distress, well-nourished - EENT Eyes: PERRL, EOM intact ENT: hearing intact, clear oral mucosa Ears: bilateral: normal - Neck Neck: supple, normal ROM - Respiratory Respiratory effort: normal Respiratory: bilateral: CTA, rhonchi (Scattered) - Breasts Breasts: normal - Cardiovascular Heart rate: 78 Rhythm: regular Heart Sounds: Present: S1 & S2. Absent: gallop, rub Extremities: no ischemia, pulses intact, No edema, normal color, Full ROM - Gastrointestinal General gastrointestinal: Present: soft, non-tender, non-distended, normal bowel sounds - Genitourinary Male genitourinary: normal - Integumentary Integumentary: clear, warm, dry - Musculoskeletal Musculoskeletal: 1, strength equal bilaterally - Neurologic Neurologic: moves all extremities - Psychiatric Psychiatric: memory intact, appropriate mood/affect, intact judgment & insight - Allied health notes Allied health notes reviewed: nursing, case management - Constitutional Vitals: Temp Pulse Resp BP Pulse Ox 98.4 F 64 20 142/67 100 08/02/20 06:21 08/02/20 10:32 08/02/20 08:30 08/02/20 10:32 08/02/20 08:30 Plan Activity: advance as tolerated Diet: low fat, low cholesterol, low salt, diabetic Wound: per wound nurse instructions Special Instructions: record daily BP diary, record blood sugar diary Additional Instructions: Report to nearest emergency department or contact your primary care physician if you experience worsening symptoms. Care will be transferred back to long term. Follow-up with your PCP within 1 to 2 weeks of discharge. You will be discharged with a 2-day course of dexamethasone to be a 10-day course. Follow up with: PRIMARY CARE, [Primary Care Provider] - 7 Days Prescriptions: dexAMETHasone [Decadron] 6 mg PO QDAY #2 tablet
[2020-08-02 14:27] VITALS: BP 139/76
== END 2020-08-02 17:44 | DRG 177 ==
LOC: ED 03:04 → 3A 05:32 → OBSVTOIN 15:47 → 3A 07-27 07:00
PROVIDERS: ADMIT Internal Medicine; ATTEND Internal Medicine
PROC: XW033E5 Introduction of Remdesivir Anti-infective into Peripheral Vein, Percutaneous Approach, New Technology Group 5 (ICD-10-PCS; principal; 2020-07-27)
DX: U07.1 COVID-19 (principal); J96.01 Acute respiratory failure with hypoxia; G93.40 Encephalopathy, unspecified; J12.89 Other viral pneumonia; I10 Essential (primary) hypertension; Z86.73 Personal history of transient ischemic attack (TIA), and cerebral infarction without residual deficits; G40.909 Epilepsy, unspecified, not intractable, without status epilepticus; Z88.8 Allergy status to other drugs, medicaments and biological substances; J45.909 Unspecified asthma, uncomplicated; Z79.82 Long term (current) use of aspirin; K21.9 Gastro-esophageal reflux disease without esophagitis; D64.9 Anemia, unspecified; R65.10 Systemic inflammatory response syndrome (SIRS) of non-infectious origin without acute organ dysfunction; D72.829 Elevated white blood cell count, unspecified; E87.6 Hypokalemia; E87.8 Other disorders of electrolyte and fluid balance, not elsewhere classified; E87.0 Hyperosmolality and hypernatremia
CPT/HCPCS: 36415; 71045; 80048; 80076; 82728; 82947; 82962; 83615; 83880; 84145; 85025; 85027; 85379; 86140; 87040; 93970; 94640; 94760; G0378; J0456; J0696; J1650; J7050; J8540; U0003